=== PATIENT | female | born 1945 | race Caucasian/White ===

== ENCOUNTER 2020-04-20 10:21 | Outpatient (CLI) | payer MEDICARE, SELFPAY ==
[2020-04-20 10:43] LABS: Basophils Absolute Auto 0.03 K/mm3 (0.00-0.10); Basophils Percent Auto 0.5 % (0.0-1.0); Eosinophils Absolute Auto 0.09 K/mm3 (0.02-0.50); Eosinophils Percent Auto 1.6 % (1.0-6.0); Hematocrit 42.8 % (35.0-42.0); Immature Granulocyte Absolute 0.01 K/mm3 (0.00-0.00); Immature Granulocyte Percent A 0.2 % (0.0-0.0); Lymphocytes Absolute Auto 1.39 K/mm3 (1.10-4.50); Lymphocytes Percent Auto 24.8 % (18.0-42.0); Mean Corpuscular HGB Conc 32.7 g/dL (32.0-36.0); Mean Corpuscular Hemoglobin 28.7 pg (27.0-31.0); Mean Corpuscular Volume 87.7 fL (78.0-102.0); Mean Platelet Volume 10.3 fl (9.2-11.8); Monocytes Absolute Auto 0.52 K/mm3 (0.10-0.90); Monocytes Percent Auto 9.3 % (2.0-11.0); Neutrophils Absolute Auto 3.6 K/mm3 (1.7-7.2); Neutrophils Percent Auto 63.6 % (50.0-70.0); Platelet Count Result 165 K/mm3 (150-420); Red Blood Count 4.88 M/mm3 (4.20-5.40); Red Cell Distribution Width 13.8 % (11.6-14.4); White Blood Count 5.6 K/mm3 (4.8-10.8)
[2020-04-20 10:50] LABS: Add Urine Microscopic? YES; Appearance Urine Clear (Clear); Bilirubin Urine 1+ (Negative); Blood Urine Negative (Negative); Color Urine Yellow (Yellow); Glucose Urine UA Negative (Negative); Ketones Urine 1+ (Negative); Leukocyte Esterase Ur Negative LEU/UL (Negative); Nitrate Urine Negative (Negative); Protein Urine Negative (Negative); Specific Grav Ur 1.025 (1.010-1.020); pH Urine 5.5 (5.0-8.0)
[2020-04-20 10:53] LABS: RBC Urine None seen /hpf (0-2); Squamous Epithelial Cell Urine Few /hpf (Few); WBC Urine None seen /hpf (0-3)
[2020-04-20 10:54] LABS: Bacteria Urine Trace /hpf; Mucus Urine Few /lpf
[2020-04-20 12:12] LABS: Alanine Aminotransferase 21 U/L (14-59); Albumin Level 3.5 g/dL (3.4-5.0); Alkaline Phosphatase 91 U/L (46-116); Anion Gap 12.1 mmol/L (7-16); Aspartate Amino Transferase 19 U/L (15-37); Bilirubin,Total 0.8 mg/dL (0.00-1.00); Blood Urea Nitrogen 18 mg/dL (7-18); Calcium 8.9 mg/dL (8.5-10.1); Carbon Dioxide 29 mmol/L (21-32); Chloride 105 mmol/L (98-108); Cholesterol 185 mg/dL (0-200); Creatine Kinase 45 U/L (26-192); Estimated Glomerular Filt Rate 50; Free T4 Free Thyroxine 1.33 ng/dL (0.76-1.46); Glucose 82 mg/dL (70-99); HDL Direct 49 mg/dL (40-60); LDL Cholesterol Calculated 118 mg/dL (<130); Osmolality Calculated 294 mOsm/kg (285-295); Potassium 4.1 mmol/L (3.5-5.1); Sodium 142 mmol/L (136-145); Thyroid Stimulating Hormone 0.95 uIU/mL (0.36-3.74); Total Protein 6.4 g/dL (6.4-8.2); Triglycerides 92 mg/dL (0-150)
== END 2020-04-20 10:22 | disposition home or self-care (01) ==
PROVIDERS: PCP Internal Medicine; Visit Provider Internal Medicine
DX: E03.9 Hypothyroidism, unspecified (principal); I10 Essential (primary) hypertension; E78.5 Hyperlipidemia, unspecified
CPT/HCPCS: 36415; 80053; 80061; 81001; 82550; 84439; 84443; 85025

== ENCOUNTER 2020-05-05 09:43 | Outpatient (CLI) | payer MEDICARE, OTHER, SELFPAY ==
--- NOTE | ~2020-05-05 | US_ITS ---
EXAMINATION: US carotid duplex BI DATE: 05/05/2020 10:19 INDICATION: Stroke with intermittent memory loss and left lower limb numbness TECHNIQUE: Grayscale, color Doppler, and pulsed Doppler images of the cervical carotid arteries were obtained. The degree of vessel stenosis is placed in one of the following categories: normal, <50%, 5 0-69%, >=70% but less than near-occlusion, near-occlusion, or total occlusion. Note that percent sten osis relative to normal distal artery lumen diameter is indirectly measured from velocity measurement s as described by Long, et al. Radiology 2003; 229:340-346. COMPARISON: None. FINDINGS: RIGHT: The right common carotid artery (CCA) peak systolic velocity (PSV) is 98 cm/s. The right internal car otid artery (ICA) PSV is 69 cm/s. The right ICA end-diastolic velocity (EDV) is 19 cm/s. The right IC A/CCA PSV ratio is 0.7. Grayscale and color Doppler images demonstrate no evident stenosis or plaque in the ICA. The external carotid artery (ECA) PSV is 68 cm/s. There is antegrade flow in the right ve rtebral artery. LEFT: The left CCA PSV is 88 cm/s. The left ICA PSV is 78 cm/s. The left ICA EDV is 22 cm/s. The left ICA/C CA PSV ratio is 0.9. Grayscale and color Doppler images demonstrate no evident stenosis or plaque in the ICA. The ECA PSV is 69 cm/s. There is antegrade flow in the left vertebral artery. IMPRESSION: 1. No evident plaque or stenosis in the right internal carotid artery. 2. No evident plaque or stenosis in the left internal carotid artery. Reviewed, dictated and finalized at location A.
== END 2020-05-05 09:44 | disposition home or self-care (01) ==
PROVIDERS: PCP Internal Medicine; Visit Provider Internal Medicine
DX: I63.9 Cerebral infarction, unspecified (principal)
CPT/HCPCS: 93880

== ENCOUNTER 2020-05-09 11:25 | Outpatient (CLI) | payer MEDICARE, OTHER, SELFPAY ==
--- NOTE | ~2020-05-09 | MR_ITS ---
EXAMINATION: MR brain/brain stem wo con EXAM DATE: 05/09/2020 12:03 INDICATION: Unsteady gait, memory loss, confusion. History breast cancer. TECHNIQUE: Magnetic resonance imaging (MRI) of the brain/brain stem obtained without contrast. Sagitt al T1, axial diffusion, gradient echo (T2*), T1, T2, FLAIR sequences obtained. Comparison is made to prior examination from 03/07/2018. 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 There is 5 mm old left centrum semiovale infarction causing T2 shine throu gh on diffusion weighted sequence. Mild microangiopathy. There are no areas of restricted diffusion to suggest acute infarction. There is no acute hemorrhage seen on the T2*, a hemosiderin sensitive sequence. No intraparenchymal brain mass. The ventricles a re normal in size. There are no extra-axial collections. Flow voids are seen in the cerebral arteri es on the T2-weighted sequences consistent with their expected patency. The orbits are unremarkable. IMPRESSION: 1. No acute intracranial findings. 2. Punctate old left cerebral white matter infarction. 3. Mild microangiopathy. 4. Subcutaneous nodules, possible neurofibromatosis. Reviewed, dictated and finalized at location A.
== END 2020-05-09 11:26 | disposition home or self-care (01) ==
LOC: CHSIMG 11:27
PROVIDERS: PCP Internal Medicine; Visit Provider Internal Medicine
DX: I63.9 Cerebral infarction, unspecified (principal)
CPT/HCPCS: 70551

== ENCOUNTER 2020-05-21 18:52 | Emergency (ER) | payer MEDICARE, OTHER, SELFPAY ==
--- NOTE | ~2020-05-21 | XR_ITS ---
XR ankle LT 2V, XR foot LT 2V 05/21/2020 19:24 (accession [id number]), 05/21/2020 19:25 (accession [id number]) Indication: Left ankle and foot pain after injury Procedure: 2 views left ankle and 2 views left foot Comparison: No prior studies Findings: There is moderate lateral soft tissue swelling. No acute fracture or traumatic malalignment . Ankle mortise intact. Talar dome is normal. There are degenerative calcaneal enthesophytes. No fore ign bodies. Impression: 1: No acute fracture. Reviewed, dictated and finalized at location A. Impression: 1: No acute fracture. Impression: 1: No acute fracture.
[2020-05-21 19:05] VITALS: BP 121/60; PULSE 84; RESP 16; TEMP 36.1; O2SAT 99
--- NOTE | 2020-05-21 19:29 | ED.LOWEXIN ---
HPI - Extremity Injury (Lower) General Chief Complaint: Extremity Injury, Lower Stated Complaint: L ankle pain Source: patient Mode of arrival: ambulatory Limitations: no limitations History of Present Illness HPI Narrative: this is a 74-year-old female with a history of hypertension, was was in an older home and inadvertently stepped through a board twisting her her foot and ankle currently the left foot and ankle appear mildly bruise with some swelling has good range of motion although there is some point tenderness on the lateral aspect of her left foot and left ankle. Patient has been walking on it although it is painful when she walks when she is resting comfortably there is no pain. complaint: ankle injury and foot injury Onset (ago): week(s) Injury: Left: ankle and foot ( Bruising and swelling) Type of Injury: inversion Place: home Severity: mild Relieving factors: NSAID Exacerbating factors: nothing Context: other ( twisted) Associated symptoms: swelling Other symptoms: none Related Data Home Medications Medication Instructions Recorded Confirmed gabapentin 300 mg PO TID 05/21/20 05/21/20 hydrochlorothiazide 12.5 mg PO DAILY 05/21/20 05/21/20 levothyroxine 50 mcg PO DAILY 05/21/20 05/21/20 olmesartan 20 mg PO DAILY 05/21/20 05/21/20 pravastatin 10 mg PO DAILY 05/21/20 05/21/20 Allergies Allergy/AdvReac Type Severity Reaction Status Date / Time No Known Allergies Allergy Unverified 06/22/16 15:15 Review of Systems Review of Systems: All systems reviewed & are unremarkable except as noted in HPI and below PMFSH Past Medical History Medical History HTN (hypertension) Exam Const: General: no acute distress and alert Nutritional Appearance: well nourished and obese Orientation/consciousness: patient oriented x3 HENMT: Head: normal to inspection Eyes: Conjunctivae: conjunctivae normal Pupils: Equal, round and reactive pupils present EOM: EOMs intact bilaterally Neck: Neck: normal visual inspection, no lymphadenopathy and no meningeal signs Chest: Chest palpation & inspection: normal inspection of the chest Resp: Effort & Inspection: normal respiratory effort Auscultation: clear to auscultation bilaterally Cardio: Rate: regular rate Rhythm: regular rhythm GI: GI Palp: Yes Soft to palpation : General: Yes no CVA tenderness Skin: General skin exam: normal color Rashes: no rashes Extrem: General: no clubbing, cyanosis or edema ( pain lateral aspect of her left foot and ankle with palpation) Psych: Mental Status: mental status grossly normal Course Course Emergency Course: patient is comfortable with some not ambulatory and just resting she really declined any pain medication because she appears comfortable at rest. Vital Signs Vital signs: Vital Signs Temperature 36.1 C L 05/21/20 19:05 Pulse Rate 84 05/21/20 19:05 Respiratory Rate 16 05/21/20 19:05 Blood Pressure 121/60 05/21/20 19:05 Pulse Oximetry 99 05/21/20 19:05 Temperature 36.1 C L 05/21/20 19:05 Pulse Rate 84 05/21/20 19:05 Respiratory Rate 16 05/21/20 19:05 Blood Pressure 121/60 05/21/20 19:05 Pulse Oximetry 99 05/21/20 19:05 Critical Care Time Critical Care Time Critical Care Time: No Discharge Plan Discharge Clinical Impression: Ankle sprain and strain Patient Disposition: Home, Self-Care Condition: Stable Instructions: Antibiotic Form, Foot Sprain (ED), Ankle Sprain (ED) Additional Instructions: Can take Motrin or Aleve [id number] as needed for pain and inflammation follow-up with primary care physician if symptoms persist or worsen. Prescriptions: No Action pravastatin 10 mg tablet 10 mg PO DAILY RF: 0 levothyroxine 50 mcg tablet 50 mcg PO DAILY RF: 0 gabapentin 300 mg capsule 300 mg PO TID RF: 0 olmesartan 20 mg tablet 20 mg PO DAILY RF: 0 hydrochlorothiazide 1
== END 2020-05-21 19:48 | disposition home or self-care (01) ==
PROVIDERS: Emergency Provider Emergency Medicine; PCP Internal Medicine
DX: S93.402A Sprain of unspecified ligament of left ankle, initial encounter (principal); X50.1XXA Overexertion from prolonged static or awkward postures, initial encounter
CPT/HCPCS: 73600; 73620; 99282; 99283

== ENCOUNTER 2020-05-28 13:34 | Outpatient (CLI) | payer MEDICARE, SELFPAY ==
[2020-05-28 14:19] LABS: Blood Urea Nitrogen 26 mg/dL (7-18); Calcium 9.8 mg/dL (8.5-10.1); Carbon Dioxide 31 mmol/L (21-32); Chloride 103 mmol/L (98-108); Estimated Glomerular Filt Rate 39; Glucose 89 mg/dL (70-99); Osmolality Calculated 293 mOsm/kg (285-295); Sodium 140 mmol/L (136-145)
== END 2020-05-28 13:35 | disposition home or self-care (01) ==
LOC: CHSLAB 13:36
PROVIDERS: PCP Internal Medicine; Visit Provider Internal Medicine
DX: I10 Essential (primary) hypertension (principal)
CPT/HCPCS: 36415; 80048

== ENCOUNTER 2020-06-02 09:43 | Outpatient (CLI) | payer MEDICARE, SELFPAY ==
[2020-06-02 10:45] LABS: Anion Gap 9.1 mmol/L (7-16); Blood Urea Nitrogen 23 mg/dL (7-18); Calcium 9.1 mg/dL (8.5-10.1); Carbon Dioxide 32 mmol/L (21-32); Chloride 105 mmol/L (98-108); Estimated Glomerular Filt Rate 42; Glucose 92 mg/dL (70-99); Osmolality Calculated 297 mOsm/kg (285-295); Potassium 4.1 mmol/L (3.5-5.1); Sodium 142 mmol/L (136-145)
== END 2020-06-02 09:44 | disposition home or self-care (01) ==
LOC: CHSLAB 09:44
PROVIDERS: PCP Internal Medicine; Visit Provider Internal Medicine
DX: I10 Essential (primary) hypertension (principal)
CPT/HCPCS: 36415; 80048

== ENCOUNTER 2020-07-04 15:36 | Outpatient (CLI) | payer MEDICARE, SELFPAY ==
[2020-07-04 16:53] LABS: Anion Gap 9 mmol/L (8-16); Blood Urea Nitrogen 27 mg/dL (7-18); Calcium 9.1 mg/dL (8.5-10.1); Carbon Dioxide 29 mmol/L (21-32); Chloride 104 mmol/L (98-108); Estimated Glomerular Filt Rate 48; Glucose 82 mg/dL (70-99); Osmolality Calculated 298 mOsm/kg (285-295); Potassium 4.1 mmol/L (3.5-5.1); Sodium 142 mmol/L (136-145)
== END 2020-07-04 15:37 | disposition home or self-care (01) ==
LOC: CHSLAB 15:39
PROVIDERS: PCP Internal Medicine; Visit Provider Internal Medicine
DX: R79.89 Other specified abnormal findings of blood chemistry (principal)
CPT/HCPCS: 36415; 80048

== ENCOUNTER 2021-03-11 14:06 | Outpatient (CLI) | payer MEDICARE, SELFPAY ==
--- NOTE | ~2021-03-11 | XR_ITS ---
EXAMINATION: XR lumbar spine 2-3V DATE: 03/11/2021 14:33 INDICATION: Chronic low back pain. TECHNIQUE: Anteroposterior and lateral views of the lumbar spine, and cone-down lateral view of the l umbosacral junction were obtained. COMPARISON: None. FINDINGS: 9 degrees levocurvature measured between L2 and L4. 2 mm anterolisthesis L4 on L5 and 2 mm retrolisth esis L2 on L3. Vertebral body heights are normal. Moderate disc height loss at L1-L2, mild disc heigh t loss at T10-T11 through T12-L1 and at L2-L3 and L3-L4. Degenerative changes between the abutting beth rfaces of the L4 and L5 spinous processes. Moderate lower lumbar facet osteoarthritis. Sacrum and garth ateral sacroiliac joints are unremarkable. Large amount of stool scattered throughout the colon. Tiffanie elate clinically for constipation. IMPRESSION: 1. Mild lumbar levocurvature with mild to moderate spondylosis. Reviewed, dictated and finalized at location A.
== END 2021-03-11 14:07 | disposition home or self-care (01) ==
LOC: CHSIMG 14:10
PROVIDERS: PCP Internal Medicine; Visit Provider Internal Medicine
DX: M54.5 Low back pain (principal)
CPT/HCPCS: 72100

== ENCOUNTER 2021-03-15 10:49 | Outpatient (RCR) | payer MEDICARE, SELFPAY ==
--- NOTE | 2021-03-15 13:01 | PTOPEVAL ---
Thank you for referring Kylee Correa to [facility] [place]Note 2[place]? The patient is scheduled to be seen for therapy? __3__x/week for 12 visits. Please review, sign, date and return this plan of care SHELDON. I agree with and certify that the following plan of care is medically necessary. Referring Physician Date Admitting Provider: Attending Provider: Lesa Aguilar MD Referring Provider: *PT Outpatient Evaluation Start: 03/15/21 11:02 Freq: Status: Active Protocol: Document 03/15/21 11:02 ROCIO (Rec: 03/15/21 11:59 [email or web address] [id number]) Therapy Assessment Status Assessment Status Assessment Status Evaluation Outpatient Past Medical History Neurological History Hx Other Neurological Disorders Yes: neurofibromitosis Cardiovascular History Hx Hypercholesterolemia Yes Hx Hypertension Yes Endocrine History Hx Hypothyroidism Yes Other History Hx Cancer Yes: breast Evaluation Information Problem Diagnosis low back pain Onset 03/15/20 Subjective Information Pt. reports that she developed Query Text:As Reported By Patient/ off/on back pain for about Family the past year. She reports that she notes an intense ache in the back with bending in the garden and even walking. She reports that pain does not affect her sleep. She reports that pain is present in some capacity throughout the day. She reports that pain goes across the low back and does not radiate into the legs and buttock. she reports that her goal is to reduce her back pain. Prior Level of Function Activity Level (Last 3 Months) Occupation retired Hand Dominance Right Activity of Daily Living Ability Independent Indoor/Home Mobility Independent Community Mobility Independent Stairs Ability Independent Functional Cognition (Planning, Shopping Independent , Taking Medications) Cooking Yes Cleaning Yes Laundry Yes Shopping Yes Driving Yes Pain Assessment Timing of Pain Assessment Timing of Pain Assessment Pre-Treatment Pain Scale Pain Scale Used Numeric (1 - 10) Self Report Pain Assessment Lower Back Reported Pain Level 5 Pain Description
== END 2021-04-29 08:31 | disposition home or self-care (01) ==
LOC: CHSPT 10:49
PROVIDERS: PCP Internal Medicine; Visit Provider Internal Medicine
DX: M54.5 Low back pain (principal)
CPT/HCPCS: 97014; 97110; 97161; 97530; G0283

== ENCOUNTER 2021-04-21 10:22 | Outpatient (CLI) | payer MEDICARE, SELFPAY ==
[2021-04-21 10:52] LABS: Basophils Absolute Auto 0.04 K/mm3 (0.00-0.10); Basophils Percent Auto 0.7 % (0.0-1.0); Eosinophils Absolute Auto 0.15 K/mm3 (0.02-0.50); Eosinophils Percent Auto 2.7 % (1.0-6.0); Hematocrit 38.2 % (35.0-42.0); Hemoglobin 12.3 g/dL (11.7-13.8); Immature Granulocyte Absolute 0.01 K/mm3 (0.00-0.00); Immature Granulocyte Percent A 0.2 % (0.0-0.0); Lymphocytes Absolute Auto 1.33 K/mm3 (1.10-4.50); Lymphocytes Percent Auto 23.8 % (18.0-42.0); Mean Corpuscular HGB Conc 32.2 g/dL (32.0-36.0); Mean Corpuscular Hemoglobin 28.7 pg (27.0-31.0); Mean Platelet Volume 10.6 fl (9.2-11.8); Monocytes Percent Auto 10.8 % (2.0-11.0); Neutrophils Absolute Auto 3.5 K/mm3 (1.7-7.2); Neutrophils Percent Auto 61.8 % (50.0-70.0); Platelet Count Result 148 K/mm3 (150-420); Red Blood Count 4.29 M/mm3 (4.20-5.40); Red Cell Distribution Width 13.9 % (11.6-14.4); White Blood Count 5.6 K/mm3 (4.8-10.8)
[2021-04-21 10:56] LABS: Appearance Urine Sl Cloudy (Clear); Bilirubin Urine Negative (Negative); Blood Urine Negative (Negative); Glucose Urine UA Negative (Negative); Ketones Urine Trace (Negative); Leukocyte Esterase Ur 3+ LEU/UL (Negative); Nitrate Urine Positive (Negative); Protein Urine Negative (Negative)
[2021-04-21 11:35] LABS: Add Urine Microscopic? YES; Color Urine Light Yellow (Yellow); RBC Urine None seen /hpf (0-2); Squamous Epithelial Cell Urine Rare /hpf (Few); WBC Urine 21-30 /hpf (0-3)
[2021-04-21 11:36] LABS: Bacteria Urine 3+ /hpf
[2021-04-21 12:06] LABS: Alanine Aminotransferase 19 U/L (14-59); Albumin Level 3.3 g/dL (3.4-5.0); Alkaline Phosphatase 89 U/L (46-116); Anion Gap 12 mmol/L (8-16); Aspartate Amino Transferase 15 U/L (15-37); Bilirubin,Total 0.8 mg/dL (0.00-1.00); Blood Urea Nitrogen 22 mg/dL (7-18); Carbon Dioxide 25 mmol/L (21-32); Chloride 106 mmol/L (98-108); Cholesterol 149 mg/dL (0-200); Creatine Kinase 56 U/L (26-192); Estimated Glomerular Filt Rate 37; Free T3 2.41 pg/mL (2.18-3.98); Free T4 Free Thyroxine 1.37 ng/dL (0.76-1.46); Glucose 86 mg/dL (70-99); HDL Direct 43 mg/dL (40-60); LDL Cholesterol Calculated 87 mg/dL (<130); Osmolality Calculated 298 mOsm/kg (285-295); Potassium 4.6 mmol/L (3.5-5.1); Sodium 143 mmol/L (136-145); Thyroid Stimulating Hormone 0.92 uIU/mL (0.36-3.74); Triglycerides 96 mg/dL (0-150)
== END 2021-04-21 10:23 | disposition home or self-care (01) ==
LOC: CHSLAB 10:25
PROVIDERS: PCP Internal Medicine; Visit Provider Internal Medicine
DX: E03.4 Atrophy of thyroid (acquired) (principal); I12.9 Hypertensive chronic kidney disease with stage 1 through stage 4 chronic kidney disease, or unspecified chronic kidney disease; E78.2 Mixed hyperlipidemia; N18.2 Chronic kidney disease, stage 2 (mild); N39.0 Urinary tract infection, site not specified
CPT/HCPCS: 36415; 80053; 80061; 81001; 82550; 84439; 84443; 84481; 85025; 87077; 87086; 87088; 87186

== ENCOUNTER 2021-11-03 12:08 | Outpatient (CLI) | payer MEDICARE, SELFPAY ==
--- NOTE | ~2021-11-03 | US_ITS ---
US retroperitoneal comp 11/03/2021 12:50 Procedure: Realtime transabdominal ultrasound of the kidneys and bladder. Indication: Chronic kidney disease Comparison: No prior studies for comparison. Findings: Renal echotexture is normal bilaterally without hydronephrosis, contour deforming mass or r enal calculus. The right kidney measures 8.5 cm and left kidney measures 9.8 cm. Bladder wall is mil dly prominent measuring 3 mm. Impression: 1: Mildly prominent bladder wall measuring 3 mm. Otherwise, unremarkable renal ultrasound. Reviewed, dictated and finalized at location A. [employer] Impression: 1: Mildly prominent bladder wall measuring 3 mm. Otherwise, unremarkable renal ultrasound.
== END 2021-11-03 12:09 | disposition home or self-care (01) ==
LOC: CHSIMG 12:09
PROVIDERS: PCP Internal Medicine; Visit Provider Internal Medicine Nephrology
DX: N18.32 Chronic kidney disease, stage 3b (principal)
CPT/HCPCS: 76770

== ENCOUNTER 2021-12-30 11:32 | Outpatient (CLI) | payer MEDICARE, SELFPAY ==
[2021-12-30 12:07] LABS: Sodium Urine Random 52 mmol/L (20-110); Total Protein Urine Random < 7.0 mg/dL (0.0-11.9); Ur Ttl Prot Creatinine Ratio 0.12 mg/mg (0-0.20)
[2021-12-30 12:31] LABS: Eosinophil Urine 0 % (0-0)
[2021-12-30 12:38] LABS: Albumin Level 3.5 g/dL (3.4-5.0); Anion Gap 9 mmol/L (8-16); Blood Urea Nitrogen 23 mg/dL (7-18); Calcium 9.1 mg/dL (8.5-10.1); Carbon Dioxide 27 mmol/L (21-32); Chloride 103 mmol/L (98-108); Estimated Glomerular Filt Rate 43; Glucose 85 mg/dL (70-99); Osmolality Calculated 290 mOsm/kg (285-295); Phosphorus 3.6 mg/dL (2.6-4.7); Potassium 4.5 mmol/L (3.5-5.1); Sodium 139 mmol/L (136-145)
[2022-01-03 11:11] LABS: Anti Glomerular Basement Memb <1.0 AI (<1.0)
[2022-01-03 12:18] LABS: Complement C3 121 mg/dL (83-193)
[2022-01-04 16:10] LABS: Albumin 3.7 g/dL (3.8-4.8); Alpha 1 Globulin 0.3 g/dL (0.2-0.3); Alpha 2 Globulin 0.8 g/dL (0.5-0.9); Beta 1 Globulin 0.5 g/dL (0.4-0.6); Gamma Globulin 0.9 g/dL (0.8-1.7); Protein, Total 6.5 g/dL (6.1-8.1)
[2022-01-05 03:08] LABS: Creatinine, Random Urine 61 mg/dL (20-275); Total Protein/Creatinine Ratio 82 mg/g creat (21-161)
[2022-01-05 12:07] LABS: ANCA Screen Negative (Negative)
== END 2021-12-30 11:33 | disposition home or self-care (01) ==
LOC: CHSLAB 11:34
PROVIDERS: PCP Internal Medicine; Visit Provider Internal Medicine Nephrology
DX: I12.9 Hypertensive chronic kidney disease with stage 1 through stage 4 chronic kidney disease, or unspecified chronic kidney disease (principal); N18.32 Chronic kidney disease, stage 3b
CPT/HCPCS: 36415; 80069; 82570; 83520; 84155; 84156; 84165; 84166; 84300; 85999; 86036; 86038; 86160; 86225

== ENCOUNTER 2021-12-31 12:28 | Outpatient (CLI) | payer MEDICARE, SELFPAY ==
--- NOTE | ~2021-12-31 | US_ITS ---
EXAMINATION: US retroperitoneal comp DATE: 12/31/2021 12:44 INDICATION: Stage IIIB chronic kidney disease TECHNIQUE: Multiple ultrasound grayscale images of the kidneys were obtained. COMPARISON: None. FINDINGS: The right kidney measures 9.3 x 4.3 x 4.8 cm. The left kidney measures 9.9 x 4.6 x 4.4 cm. The kidney s demonstrate normal echogenicity. There is no hydronephrosis in either kidney. No stones identified . The bladder is normal. IMPRESSION: 1. Normal kidneys without hydronephrosis. Reviewed, dictated and finalized at location A. OF DATA
== END 2021-12-31 12:29 | disposition home or self-care (01) ==
LOC: CHSIMG 12:29
PROVIDERS: PCP Internal Medicine; Visit Provider Internal Medicine Nephrology
DX: N18.32 Chronic kidney disease, stage 3b (principal)
CPT/HCPCS: 76770

== ENCOUNTER 2022-04-06 13:56 | Outpatient (CLI) | payer MEDICARE, SELFPAY ==
[2022-04-06 14:53] LABS: Albumin Level 3.4 g/dL (3.4-5.0); Anion Gap 7 mmol/L (8-16); Blood Urea Nitrogen 27 mg/dL (7-18); Carbon Dioxide 26 mmol/L (21-32); Chloride 105 mmol/L (98-108); Estimated Glomerular Filt Rate 32; Glucose 88 mg/dL (70-99); Osmolality Calculated 290 mOsm/kg (285-295); Phosphorus 4.2 mg/dL (2.6-4.7); Potassium 4.4 mmol/L (3.5-5.1); Sodium 138 mmol/L (136-145)
[2022-04-08 14:56] LABS: Vitamin D 25 Hydroxy 45 ng/mL (30-100)
[2022-04-09 15:37] LABS: Parathyroid Intact 88 pg/mL (14-64)
== END 2022-04-06 13:57 | disposition home or self-care (01) ==
LOC: CHSLAB 13:59
PROVIDERS: PCP Internal Medicine; Visit Provider Internal Medicine Nephrology
DX: I12.9 Hypertensive chronic kidney disease with stage 1 through stage 4 chronic kidney disease, or unspecified chronic kidney disease (principal); M18.32 Unilateral post-traumatic osteoarthritis of first carpometacarpal joint, left hand; E55.9 Vitamin D deficiency, unspecified
CPT/HCPCS: 36415; 80069; 82306; 83970

== ENCOUNTER 2022-04-07 12:31 | Outpatient (CLI) | payer MEDICARE, SELFPAY ==
[2022-04-07 12:56] LABS: Creatinine Urine 67.12 mg/dL (40-278); Total Protein Urine Random < 6.0 mg/dL (0.0-11.9); Ur Ttl Prot Creatinine Ratio 0.09 mg/mg (0-0.20)
== END 2022-04-07 12:32 | disposition home or self-care (01) ==
LOC: CHSLAB 12:33
PROVIDERS: PCP Internal Medicine; Visit Provider Internal Medicine Nephrology
DX: I12.9 Hypertensive chronic kidney disease with stage 1 through stage 4 chronic kidney disease, or unspecified chronic kidney disease (principal); N18.32 Chronic kidney disease, stage 3b; E55.9 Vitamin D deficiency, unspecified
CPT/HCPCS: 82570; 84156

== ENCOUNTER 2022-08-17 11:36 | Outpatient (CLI) | payer MEDICARE, SELFPAY ==
[2022-08-17 12:19] LABS: Anion Gap 7 mmol/L (8-16); Blood Urea Nitrogen 25 mg/dL (7-18); Carbon Dioxide 28 mmol/L (21-32); Chloride 107 mmol/L (98-108); Estimated Glomerular Filt Rate 37; Glucose 92 mg/dL (70-99); Osmolality Calculated 298 mOsm/kg (285-295); Potassium 4.7 mmol/L (3.5-5.1); Sodium 142 mmol/L (136-145)
[2022-08-17 12:20] LABS: Albumin Level 3.6 g/dL (3.4-5.0); Calcium 9.2 mg/dL (8.5-10.1); Phosphorus 4.1 mg/dL (2.6-4.7)
[2022-08-17 12:25] LABS: Creatinine Urine 82.56 mg/dL (40-278); Total Protein Urine Random 12.5 mg/dL (0.0-11.9); Ur Ttl Prot Creatinine Ratio 0.15 mg/mg (0-0.20)
== END 2022-08-17 11:37 | disposition home or self-care (01) ==
LOC: CHSLAB 11:38
PROVIDERS: PCP Internal Medicine; Visit Provider Internal Medicine Nephrology
DX: I12.9 Hypertensive chronic kidney disease with stage 1 through stage 4 chronic kidney disease, or unspecified chronic kidney disease (principal); N18.32 Chronic kidney disease, stage 3b
CPT/HCPCS: 36415; 80069; 82570; 84156

== ENCOUNTER 2022-12-23 11:43 | Outpatient (CLI) | payer MEDICARE, SELFPAY ==
[2022-12-23 12:22] LABS: Total Protein Urine Random 16.5 mg/dL (0.0-11.9); Ur Ttl Prot Creatinine Ratio 0.17 mg/mg (0-0.20)
[2022-12-23 12:48] LABS: Albumin Level 3.3 g/dL (3.4-5.0); Anion Gap 6 mmol/L (8-16); Blood Urea Nitrogen 23 mg/dL (7-18); Calcium 9.2 mg/dL (8.5-10.1); Carbon Dioxide 29 mmol/L (21-32); Chloride 107 mmol/L (98-108); Estimated Glomerular Filt Rate 40; Glucose 92 mg/dL (70-99); Osmolality Calculated 297 mOsm/kg (285-295); Phosphorus 3.9 mg/dL (2.6-4.7); Potassium 4.8 mmol/L (3.5-5.1); Sodium 142 mmol/L (136-145)
[2022-12-26 19:44] LABS: Vitamin D 25 Hydroxy 38 ng/mL (30-100)
[2022-12-27 20:38] LABS: Parathyroid Intact 69 pg/mL (14-64)
== END 2022-12-23 11:44 | disposition home or self-care (01) ==
LOC: CHSLAB 11:46
PROVIDERS: PCP Internal Medicine; Visit Provider Internal Medicine Nephrology
DX: N18.32 Chronic kidney disease, stage 3b (principal); I12.9 Hypertensive chronic kidney disease with stage 1 through stage 4 chronic kidney disease, or unspecified chronic kidney disease; E55.9 Vitamin D deficiency, unspecified; N25.81 Secondary hyperparathyroidism of renal origin
CPT/HCPCS: 36415; 80069; 82306; 82570; 83970; 84156

== ENCOUNTER 2023-04-14 16:27 | Outpatient (CLI) | payer MEDICARE, SELFPAY ==
[2023-04-14 17:16] LABS: Albumin Level 3.2 g/dL (3.4-5.0); Anion Gap 7 mmol/L (8-16); Blood Urea Nitrogen 42 mg/dL (7-18); Calcium 8.6 mg/dL (8.5-10.1); Carbon Dioxide 26 mmol/L (21-32); Chloride 103 mmol/L (98-108); Estimated Glomerular Filt Rate 23; Glucose 96 mg/dL (70-99); Osmolality Calculated 292 mOsm/kg (285-295); Phosphorus 4.5 mg/dL (2.6-4.7); Potassium 4.9 mmol/L (3.5-5.1); Sodium 136 mmol/L (136-145)
== END 2023-04-14 16:28 | disposition home or self-care (01) ==
LOC: CHSLAB 16:29
PROVIDERS: PCP Internal Medicine; Visit Provider Internal Medicine Nephrology
DX: I12.9 Hypertensive chronic kidney disease with stage 1 through stage 4 chronic kidney disease, or unspecified chronic kidney disease (principal); N18.32 Chronic kidney disease, stage 3b
CPT/HCPCS: 36415; 80069

== ENCOUNTER 2023-04-15 11:44 | Outpatient (CLI) | payer MEDICARE, SELFPAY ==
[2023-04-15 12:34] LABS: Creatinine Urine 191.94 mg/dL (40-278); Total Protein Urine Random 21.4 mg/dL (0.0-11.9); Ur Ttl Prot Creatinine Ratio 0.11 mg/mg (0-0.20)
== END 2023-04-15 11:45 | disposition home or self-care (01) ==
PROVIDERS: PCP Internal Medicine; Visit Provider Internal Medicine Nephrology
DX: N18.32 Chronic kidney disease, stage 3b (principal); I12.9 Hypertensive chronic kidney disease with stage 1 through stage 4 chronic kidney disease, or unspecified chronic kidney disease
CPT/HCPCS: 82570; 84156

== ENCOUNTER 2023-07-24 11:16 | Outpatient (CLI) | payer MEDICARE, SELFPAY ==
--- NOTE | ~2023-07-24 | XR_ITS ---
Lumbosacral Spine: AP and lateral views Clinical History: Pain COMPARISON: 03/11/2021 Findings: Mild levoscoliosis is similar to prior exam. No acute fracture identified. No definite subl uxation. There is mild to moderate facet arthropathy throughout the lumbar spine. There are mild to m oderate degenerative disc changes throughout the lumbar spine. The sacroiliac joints are normally out lined. Impression: Mild to moderate degenerative spondylosis, as above, similar to prior exam. Stable levoscoliosis. Reviewed, dictated and finalized at location M. Impression: Mild to moderate degenerative spondylosis, as above, similar to prior exam. Stable levoscoliosis.
--- NOTE | ~2023-07-24 | XR_ITS ---
Thoracic spine: Clinical Indication: Back pain AP and lateral views were performed. No fracture is seen. There is normal alignment of the vertebrae. The intervertebral disc spaces appe ar normal. Paravertebral soft tissues appear normal. Impression: No significant abnormalities noted. Reviewed, dictated and finalized at [facility]. Impression: No significant abnormalities noted.
== END 2023-07-24 11:17 | disposition home or self-care (01) ==
LOC: CHSIMG 11:17
PROVIDERS: PCP Internal Medicine; Visit Provider Nurse Practitioner Family
DX: M54.50 Low back pain, unspecified (principal); M43.06 Spondylolysis, lumbar region; M41.87 Other forms of scoliosis, lumbosacral region
CPT/HCPCS: 72072; 72100

== ENCOUNTER 2023-08-11 10:31 | Outpatient (CLI) | payer MEDICARE, SELFPAY ==
[2023-08-11 11:02] LABS: Creatinine Urine 63.97 mg/dL (40-278); Total Protein Urine Random 8.7 mg/dL (0.0-11.9); Ur Ttl Prot Creatinine Ratio 0.14 mg/mg (0-0.20)
[2023-08-11 11:16] LABS: Anion Gap 10 mmol/L (8-16); Blood Urea Nitrogen 22 mg/dL (7-18); Calcium 9.4 mg/dL (8.5-10.1); Carbon Dioxide 25 mmol/L (21-32); Chloride 107 mmol/L (98-108); Estimated Glomerular Filt Rate 34; Glucose 84 mg/dL (70-99); Osmolality Calculated 296 mOsm/kg (285-295); Phosphorus 3.7 mg/dL (2.6-4.7); Potassium 4.6 mmol/L (3.5-5.1); Sodium 142 mmol/L (136-145)
[2023-08-15 03:48] LABS: Parathyroid Intact 81 pg/mL (14-64)
[2023-08-15 12:52] LABS: Vitamin D 25 Hydroxy 30 ng/mL (30-100)
== END 2023-08-11 10:32 | disposition home or self-care (01) ==
LOC: CHSLAB 10:32
PROVIDERS: PCP Internal Medicine; Visit Provider Internal Medicine Nephrology
DX: I12.9 Hypertensive chronic kidney disease with stage 1 through stage 4 chronic kidney disease, or unspecified chronic kidney disease (principal); N18.32 Chronic kidney disease, stage 3b
CPT/HCPCS: 36415; 80069; 82306; 82570; 83970; 84156

== ENCOUNTER 2023-10-24 16:41 | Emergency (ER) | payer MEDICARE, SELFPAY ==
[2023-10-24] VITALS (47 sets, daily range): BP systolic 103–129; BP diastolic 70–103; PULSE 88–121; RESP 15–26; TEMP 37.2; O2SAT 81–100
--- NOTE | ~2023-10-24 | XR_ITS ---
EXAMINATION: XR chest 1V portable DATE: 10/24/2023 17:13 INDICATION: Shortness of breath. TECHNIQUE: A single frontal view of the chest was obtained. COMPARISON: Chest 2 views 10/29/2014, chest CT 10/29/2014 FINDINGS: There is no pneumonia, pleural effusion, or pneumothorax. The heart size is normal. IMPRESSION: 1. No acute cardiopulmonary disease. Reviewed, dictated and finalized at location A. 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
--- NOTE | ~2023-10-24 | CT_ITS ---
EXAMINATION: CTA chest PE protocol DATE: 10/24/2023 18:13 INDICATION: SOB X 1 WEEK TECHNIQUE: Computed tomography angiography (CTA) of the chest was performed with 100 mL Omnipaque-350 intravenous contrast timed to evaluate the pulmonary arteries. Coronal maximum intensity projection 3D-reconstructions were created by the technologist. The dose-length product (DLP) was 263.10 mGy-cm. Automated exposure control and iterative reconstruction technique were employed. COMPARISON: X-ray chest, same date. FINDINGS: Lung parenchyma and airways: Irregular, approximately 1 cm nodular opacities noted peripherally in th e right lower lobe, slightly wedge-shaped in the coronal and sagittal views. Pleura: Unremarkable. Thoracic inlet, axillae and chest wall: Unremarkable. Thoracic aorta: Mild arch calcification. Mediastinum: Normal. Heart and pericardium: RV/LV ratio 1.2 no hepatic vein reflux or significant septal bowing. Coronary artery calcifications: Mild. Upper abdomen: No significant finding. Bones: No acute osseous finding. Pulmonary arteries: Study quality: Adequate. Acute emboli in the distal bilateral main pulmonary cam evaristo, extending into segmental and subsegmental branches of all lobes, except the lingula. Probably o cclusive emboli in the right upper lobe, right lower lobe, and right middle lobe. IMPRESSION: Bilateral acute pulmonary emboli involving the distal bilateral pulmonary arteries extending into the segmental and subsegmental branches of most lung lobes. Large clot burden. RV/LV ratio of 1.2 indica ting right heart strain. Peripheral right lower lobe opacities may represent small subsegmental pulmonary infarctions. Reviewed, dictated and finalized at location K. ITY ASSURANCE CLERK IMPRESSION: Bilateral acute pulmonary emboli involving the distal bilateral pulmonary arter ies extending into the segmental and subsegmental branches of most lung lobes. Large clot burden. RV/LV ratio of 1.2 indicating right heart strain. Peripheral right lower lobe opacities may represent small subsegmental pulmonar y infarctions.
--- NOTE | 2023-10-24 16:46 | ED.GENADULT ---
HPI - General Adult General Chief complaint: Shortness of Breath/Dyspnea <Paras Dolan MD - Last Filed: 10/24/23 19:03> Stated complaint: near syncope <Paras Dolan MD - Last Filed: 10/24/23 19:03> Time Seen by Provider: 10/24/23 16:46 <Paras Dolan MD - Last Filed: 10/24/23 19:03> Source: patient <Paras Dolan MD - Last Filed: 10/24/23 19:03> Mode of arrival: ambulatory <Paras Dolan MD - Last Filed: 10/24/23 19:03> Limitations: no limitations <Paras Dolan MD - Last Filed: 10/24/23 19:03> History of Present Illness HPI narrative: 78-year-old white female complains of nonproductive cough for the last week with dyspnea on exertion and some chest tightness with exertion she was at the grave of her daughter when she bent all over lost her balance and sit down took a long time to get up. She said she had tightness in her chest that lasted for about 10 minutes so she came to the emergency room for evaluation. She felt a little nauseous without any vomiting or diaphoresis has denied any fever runny nose sore throat swelling lumps or bumps bleeding or bruising for rash or itching or anxiety depression or other psychiatric illness. She has had COVID vaccine in a booster. History of breast cancer in 2015 treated with surgery radiation chemo she says she is cured CVA (cerebral vascular accident) HTN (hypertension) Hyperlipidemia Hypothyroidism Lumbago Neurofibromatosis Peripheral neuropathy allergies lisinopril gives her cough <Paras Dolan MD - Last Filed: 10/24/23 19:03> Related Data Home medications: Home Medications Medication Instructions Recorded Confirmed levothyroxine 50 mcg tablet 50 mcg PO DAILY 05/21/20 10/24/23 olmesartan 20 mg tablet 20 mg PO DAILY 05/21/20 10/24/23 pravastatin 10 mg tablet 10 mg PO DAILY 05/21/20 10/24/23 gabapentin 300 mg capsule 300 mg PO .COMPLEX 12/28/22 10/24/23 <Paras Dolan MD - Last Filed: 10/24/23 19:03> Allergies/adverse reactions: Allergies Allergy/AdvReac Type Severity Reaction Status Date / Time lisinopril Allergy Cough Verified 10/24/23 17:15 <Paras Dolan MD - Last Filed: 10/24/23 19:03> [facility] Past Medical History Medical History: Medical History (Updated 10/24/23 @ 21:56 by Alan Denton MD) CVA (cerebral vascular accident) HTN (hypertension) Hyperlipidemia Hypothyroidism Lumbago Neurofibromatosis Peripheral neuropathy <Paras Dolan MD - Last Filed: 10/24/23 19:03> Social History Social History: Social History (Updated 12/28/22 @ 10:37 by Luigi Reid MD) Smoking status: Former smoker Tobacco type: cigarettes Alcohol intake: current Substance use: never Substance use type: unknown Lack of Transportation: No Lack of Food: Never True Current Housing: I Have Housing Concerned About Future Housing: No Difficulty Paying Gas/Electric Bills: No Difficulty Paying for Meds: No Currently Unemployed: No Education: High School Diploma/GED Difficulty w/ Childcare or Family Care: No Living arrangements: with family Gender identity (if verbalized by the patient): Female Sexual Orientation (if Verbalized by the Patient): Straight or Heterosexual <Paras Dolan MD - Last Filed: 10/24/23 19:03> Course Course Emergency Course: ZYCH 2199: multiple hospitals were called and most of them had several day waiting list. Patient was eventually accepted at [facility] under Dr. Vaughan. Patient was transferred via ALS ambulance. patient's condition stable discharged <Alan Denton MD - Last Filed: 10/24/23 21:56> Vital Signs Vital signs: Vital Signs Temperature 98.9 F 10/24/23 16:41 Pulse Rate 102 H 10/24/23 16:41 Respiratory Rate 24 H 10/24/23 16:41 Blood Pressure 119/87 10/24/23 16:41 Pulse Oximetry 81 L 10/24/23 16:41 Oxygen Delivery Room
--- NOTE | 2023-10-24 16:47 | ECG_ITS ---
Measurements Intervals [place] Rate: 99 P: 9 IA: 154 QRS: -33 QRSD: 114 T: 60 QT: 323 QTc: 415 Interpretive Statements SINUS RHYTHM WITH SINUS ARRHYTHMIA LEFT AXIS DEVIATION [QRS AXIS < -30] POSSIBLE ANTERIOR MYOCARDIAL INFARCTION , OF INDETERMINATE AGE [30 ms Q WAVE IN V3/V4, OR R < 0.2 mV IN V4] ABNORMAL ECG NO PREVIOUS ECG AVAILABLE FOR COMPARISON Electronically Signed On 10-25-2023 10:45:36 PERMANENT MOLD SUPERVISOR by Paras Lombardi M.D.
[2023-10-24 17:13] LABS: Hemoglobin 12.2 g/dL (11.7-13.8); Mean Corpuscular HGB Conc 32.1 g/dL (32.0-36.0); Mean Corpuscular Volume 84.1 fL (78.0-102.0); Mean Platelet Volume 9.7 fl (9.2-11.8); Platelet Count Result 173 K/mm3 (150-420); Red Blood Count 4.52 M/mm3 (4.20-5.40); Red Cell Distribution Width 14.3 % (11.6-14.4); White Blood Count 7.5 K/mm3 (4.8-10.8)
[2023-10-24] MEDS: IPRATROPIUM 0.5 MG/ALBUTEROL SULFATE 2.5 MG AMPUL.NEB 3 ML INHALATION (17:13)
[2023-10-24 17:14] LABS: Base Excess ABG -2.2 mmol/L (0-2); Device ROOM AIR; HCO3 ABG 19.8 mmol/L (23-29); Modified Allen's Test Pass; Oxygen Content ABG 15.9 %vol (16.0-22.0); Oxygen Saturation ABG 90.7 % (95-97); Oxyhemoglobin 90.4 % (94-100); PCO2 ABG 26.5 mmHg (35-45); PO2 ABG 56.6 mmHg (75-85); Site Drawn RIGHT RADIAL; Total Hemoglobin 12.5 g/dL (12.0-18.0); pH ABG 7.49 (7.35-7.45)
--- NOTE | 2023-10-24 17:17 | PC.NURSE ---
pt has neb tx in progress. is in waiting room and has been updated. pt is awaiting covid results for to come back to exam room. pt is awaiting results at this time. will continue to monitor.
[2023-10-24 17:30] LABS: SARS-CoV-2 RNA PCR Negative (Negative)
[2023-10-24 17:30] LABS: Alanine Aminotransferase 18 U/L (14-59); Alkaline Phosphatase 140 U/L (46-116); Anion Gap 4 mmol/L (8-16); Aspartate Amino Transferase 13 U/L (15-37); Bilirubin,Total 0.4 mg/dL (0.00-1.00); Blood Urea Nitrogen 17 mg/dL (7-18); Calcium 8.5 mg/dL (8.5-10.1); Carbon Dioxide 30 mmol/L (21-32); Chloride 102 mmol/L (98-108); Estimated Glomerular Filt Rate 36; Glucose 141 mg/dL (70-99); Osmolality Calculated 285 mOsm/kg (285-295); Potassium 3.7 mmol/L (3.5-5.1); Sodium 136 mmol/L (136-145); Total Protein 6.9 g/dL (6.4-8.2); Troponin I 31.2 ng/L (0.00-60.4)
[2023-10-24 17:32] LABS: Influenza A QL RT-PCR Negative (Negative); Influenza B QL RT-PCR Negative (Negative); RSV RNA, RT-PCR Negative (Negative)
[2023-10-24 17:33] LABS: Lactic Acid Reflex 1.7 mmol/L (0.4-2.0)
[2023-10-24 17:37] LABS: NT Pro B Type Natriuretic Pept 644 pg/mL (0-450); Partial Thromboplastin Time 26.9 SEC (23.90-30.70); Prothrombin Time 10.9 Seconds (9.64-11.0)
[2023-10-24 17:42] LABS: D Dimer 15.64 mg/L (0.19-0.50)
--- NOTE | 2023-10-24 17:51 | PC.NURSE ---
pt has at bedside. pt is awaiting ct at this time, nad noted. pt denies any needs or complaints. will continue to monitor.
[2023-10-24] MEDS: AZITHROMYCIN 500 MG/NS 250 ML 500 MG/250 ML BAG 250 MG IVPB (18:18)
--- NOTE | 2023-10-24 18:47 | PC.NURSE ---
warm blanket provided. vss per monitor. remains at bedside. nad noted. pt reports sob is worse with exertion, however denies any sob at this time. will continue to monitor.
[2023-10-24] MEDS: HEPARIN SODIUM 5,000 UNITS/ML VIAL 5000 UNITS IV PUSH (19:19)
[2023-10-24] MEDS: HEPARIN SOD/D5W 100 UNITS/ML 25,000 UNITS/250 ML BAG 11 UNITS IV CONT (19:22)
--- NOTE | 2023-10-24 21:52 | PC.NURSE ---
Pt placement bed received from [facility]. Paperwork signed for transfer.
--- NOTE | 2023-10-24 22:35 | PC.NURSE ---
Pt transferred to cot per EMS [facility] for transfer s incident. Tolerated well, pt stable c VSS at d/c.
--- NOTE | 2023-10-30 12:56 | PC.NURSE ---
Final blood culture report; no growth after 5 days, no further action or treatment needed.
== END 2023-10-24 22:35 | disposition short-term general hospital (02) ==
PROVIDERS: Emergency Medicine; Emergency Provider Emergency Medicine; PCP Internal Medicine
DX: I26.99 Other pulmonary embolism without acute cor pulmonale (principal); E78.5 Hyperlipidemia, unspecified; I10 Essential (primary) hypertension; E03.9 Hypothyroidism, unspecified; Z87.891 Personal history of nicotine dependence; Z85.3 Personal history of malignant neoplasm of breast; Z86.73 Personal history of transient ischemic attack (TIA), and cerebral infarction without residual deficits; Z20.822 Contact with and (suspected) exposure to COVID-19
CPT/HCPCS: 36415; 36600; 71045; 71275; 80053; 82805; 83605; 83880; 84484; 85027; 85380; 85610; 85730; 87040; 87637; 93005; 96365; 96366; 96367; 99291; J0456; J0696; J1644; Q9967

== ENCOUNTER 2023-12-15 13:22 | Outpatient (CLI) | payer MEDICARE, SELFPAY ==
[2023-12-15 14:10] LABS: Anion Gap 10 mmol/L (8-16); Blood Urea Nitrogen 29 mg/dL (7-18); Calcium 8.6 mg/dL (8.5-10.1); Carbon Dioxide 27 mmol/L (21-32); Chloride 106 mmol/L (98-108); Estimated Glomerular Filt Rate 37; Glucose 122 mg/dL (70-99); Osmolality Calculated 302 mOsm/kg (285-295); Potassium 4.6 mmol/L (3.5-5.1); Sodium 143 mmol/L (136-145)
[2023-12-15 17:18] LABS: Creatinine Urine 58.74 mg/dL (40-278); Total Protein Urine Random 9.1 mg/dL (0.0-11.9); Ur Ttl Prot Creatinine Ratio 0.15 mg/mg (0-0.20)
== END 2023-12-15 13:23 | disposition home or self-care (01) ==
LOC: CHSLAB 13:23
PROVIDERS: PCP Internal Medicine; Visit Provider Internal Medicine Nephrology
DX: I12.9 Hypertensive chronic kidney disease with stage 1 through stage 4 chronic kidney disease, or unspecified chronic kidney disease (principal); N18.32 Chronic kidney disease, stage 3b
CPT/HCPCS: 36415; 80069; 82570; 84156

== ENCOUNTER 2024-03-16 16:55 | Emergency (ER) | payer MEDICARE, SELFPAY ==
--- NOTE | ~2024-03-16 | XR_ITS ---
EXAM: XR hip RT 2V w AP pelvis DATE: 03/16/2024 17:32 HISTORY: accidental fall with posterior right hip pain x1 day . COMPARISON: None available. FINDINGS: Decreased mineralization. No fracture or dislocation. No lytic or blastic lesion. Lumbar d egenerative disc disease. Mild bilateral hip osteoarthritis. No erosion or periosteal change. Soft ti ssues within normal limits. IMPRESSION: No acute osseous finding in the pelvis or right hip. Reviewed, dictated and finalized at location K.
[2024-03-16 16:55] VITALS: BP 112/61; PULSE 89; RESP 18; TEMP 36.3; O2SAT 99
--- NOTE | 2024-03-16 17:09 | ED.LOWEXIN ---
HPI - Extremity Injury (Lower) General Chief Complaint: Extremity Injury, Lower Stated Complaint: fall; right hip pain Time Seen by Provider: 03/16/24 17:09 Source: patient Mode of arrival: ambulatory Limitations: no limitations History of Present Illness HPI Narrative: 78-year-old female with a history of hypertension, CVA, dyslipidemia, hypothyroidism, pulmonary embolism on Eliquis, neurofibromatosis had a fall yesterday. She fell on her left and presents to the ER with -- left hip pain. -- Pain increases on bearing weight. No head injury. No neck or back pain. No abrasions/lacerations. MD complaint: hip injury Onset (ago): day(s) ( One day ago) Injury: Right: hip Type of Injury: blunt Place: home Severity: moderate Relieving factors: immobilization Exacerbating factors: weight bearing Context: fall Other symptoms: none Related Data Home Medications Medication Instructions Recorded Confirmed levothyroxine 50 mcg tablet 50 mcg PO DAILY 05/21/20 12/20/23 olmesartan 20 mg tablet 20 mg PO DAILY 05/21/20 12/20/23 pravastatin 10 mg tablet 10 mg PO DAILY 05/21/20 12/20/23 gabapentin 300 mg capsule 300 mg PO .COMPLEX 12/28/22 12/20/23 apixaban 5 mg tablet (Eliquis) 5 mg PO BID 12/20/23 12/20/23 Allergies Allergy/AdvReac Type Severity Reaction Status Date / Time lisinopril Allergy Cough Verified 03/16/24 17:07 Review of Systems Review of Systems: All systems reviewed & are unremarkable except as noted in HPI and below Constitutional: Constitutional: Reports as per HPI and Reports no additional constitutional complaints Eyes: Eyes: Reports as per HPI and Reports no additional eye complaints ENT: Reports system reviewed and no additional complaints, except as documented and Reports as per HPI Cardiovascular: Cardiovascular: Reports as per HPI and Reports no additional cardiovascular complaints Respiratory: Respiratory: Reports as per HPI and Reports no additional respiratory complaints Gastrointestinal: Gastrointestinal: Reports as per HPI and Reports no additional gastrointestinal complaints Genitourinary: Genitourinary: Reports no additional female genitourinary complaints and Reports as per HPI Musculoskeletal: Musculoskeletal: Reports no additional musculoskeletal complaints and Reports back pain Comments: chronic low back pain Integumentary/Breasts: Skin/Breast: Reports system reviewed and no additional complaints, except as docu Comments: extensive neurofibromatosis. Neurologic: Reports system reviewed and no additional complaints, except as documented and Reports as per HPI Psychiatric: Psychiatric: Reports no additional psychiatric complaints and Reports as per HPI Endocrine: Endocrine: Reports no additional endocrine complaints and Reports as per HPI Hematologic/Lymphatic: Hematologic/Lymphatic: Reports no additional hematologic/lymphatic complaints and Reports as per HPI Allergic/Immunologic: Allergic/Immunologic: Reports no additional allergic/immunologic complaints and Reports as per HPI [facility] Past Medical History Medical History CVA (cerebral vascular accident) HTN (hypertension) Hyperlipidemia Hypothyroidism Lumbago Neurofibromatosis Peripheral neuropathy Social History Social History Smoking status: Former smoker Tobacco type: cigarettes Alcohol intake: current Substance use: never Substance use type: unknown Do You Feel Safe in your Home?: Yes Lack of Transportation: No Lack of Food: Never True Current Housing: I Have Housing Concerned About Future Housing: No Difficulty Paying Gas/Electric Bills: No Difficulty Paying for Meds: No Currently Unemployed: No Education: High School Diploma/GED Difficulty w/ Childcare or Family Care: No Living arrangements: with family Gender identity (if verbalized by the patient): Female
[2024-03-16] MEDS: ONDANSETRON HCL ODT 4 MG TABLET PO (17:55)
[2024-03-16] MEDS: HYDROmorphone HCL INJ (*CRX) 2 MG/ML VIAL 0.5 MG IM (17:55)
[2024-03-16 18:10] VITALS: BP 119/70; PULSE 68; RESP 16; TEMP 36.7; O2SAT 97
== END 2024-03-16 18:10 | disposition home or self-care (01) ==
PROVIDERS: Emergency Provider Internal Medicine Critical Care Medicine; PCP Internal Medicine
DX: M25.551 Pain in right hip (principal); W19.XXXA Unspecified fall, initial encounter; I10 Essential (primary) hypertension; E78.5 Hyperlipidemia, unspecified; E03.9 Hypothyroidism, unspecified; Q85.00 Neurofibromatosis, unspecified; G62.9 Polyneuropathy, unspecified; Z86.73 Personal history of transient ischemic attack (TIA), and cerebral infarction without residual deficits; Z86.711 Personal history of pulmonary embolism; Z79.01 Long term (current) use of anticoagulants; Z87.891 Personal history of nicotine dependence
CPT/HCPCS: 73502; 96372; 99283; A9270; J1170

== ENCOUNTER 2024-04-12 12:42 | Outpatient (CLI) | payer MEDICARE, SELFPAY ==
[2024-04-12 13:29] LABS: Albumin Level 3.1 g/dL (3.4-5.0); Anion Gap 10 mmol/L (4-12); Blood Urea Nitrogen 32 mg/dL (7-18); Calcium 8.9 mg/dL (8.5-10.1); Carbon Dioxide 25 mmol/L (21-32); Chloride 106 mmol/L (98-108); Estimated Glomerular Filt Rate 27; Glucose 97 mg/dL (70-99); Osmolality Calculated 298 mOsm/kg (285-295); Phosphorus 4.2 mg/dL (2.6-4.7); Potassium 4.9 mmol/L (3.5-5.1); Sodium 141 mmol/L (136-145)
[2024-04-13 17:49] LABS: Parathyroid Intact 155 pg/mL (16-77)
[2024-04-14 03:08] LABS: Vitamin D 25 Hydroxy 100 ng/mL (30-100)
== END 2024-04-12 12:43 | disposition home or self-care (01) ==
LOC: CHSLAB 12:43
PROVIDERS: PCP Internal Medicine; Visit Provider Internal Medicine Nephrology
DX: I12.9 Hypertensive chronic kidney disease with stage 1 through stage 4 chronic kidney disease, or unspecified chronic kidney disease (principal); E55.9 Vitamin D deficiency, unspecified; N25.81 Secondary hyperparathyroidism of renal origin; N18.32 Chronic kidney disease, stage 3b
CPT/HCPCS: 36415; 80069; 82306; 83970

== ENCOUNTER 2024-06-07 14:19 | Outpatient (CLI) | payer MEDICARE, SELFPAY ==
[2024-06-07 18:50] LABS: Albumin Level 3.1 g/dL (3.4-5.0); Anion Gap 6 mmol/L (4-12); Blood Urea Nitrogen 22 mg/dL (7-18); Calcium 8.7 mg/dL (8.5-10.1); Carbon Dioxide 27 mmol/L (21-32); Chloride 102 mmol/L (98-108); Estimated Glomerular Filt Rate 39; Glucose 88 mg/dL (70-99); Osmolality Calculated 282 mOsm/kg (285-295); Phosphorus 3.3 mg/dL (2.6-4.7); Potassium 4.6 mmol/L (3.5-5.1); Sodium 135 mmol/L (136-145)
== END 2024-06-07 14:20 | disposition home or self-care (01) ==
LOC: CHSLAB 14:21
PROVIDERS: PCP Internal Medicine; Visit Provider Internal Medicine Nephrology
DX: N18.32 Chronic kidney disease, stage 3b (principal)
CPT/HCPCS: 36415; 80069

== ENCOUNTER 2024-08-15 08:56 | Outpatient (CLI) | payer MEDICARE, SELFPAY ==
[2024-08-15 09:16] LABS: Creatinine Urine 51.49 mg/dL (40-278); Total Protein Urine Random 8.7 mg/dL (0.0-11.9); Ur Ttl Prot Creatinine Ratio 0.17 mg/mg (0-0.20)
[2024-08-15 10:06] LABS: Albumin Level 3.1 g/dL (3.4-5.0); Anion Gap 7 mmol/L (4-12); Blood Urea Nitrogen 21 mg/dL (7-18); Calcium 8.8 mg/dL (8.5-10.1); Carbon Dioxide 28 mmol/L (21-32); Chloride 105 mmol/L (98-108); Estimated Glomerular Filt Rate 36; Glucose 90 mg/dL (70-99); Osmolality Calculated 293 mOsm/kg (285-295); Phosphorus 3.8 mg/dL (2.6-4.7); Potassium 4.6 mmol/L (3.5-5.1); Sodium 140 mmol/L (136-145)
[2024-08-16 16:33] LABS: Parathyroid Intact 126 pg/mL (16-77)
== END 2024-08-15 08:57 | disposition home or self-care (01) ==
LOC: CHSLAB 08:57
PROVIDERS: PCP Internal Medicine; Visit Provider Internal Medicine Nephrology
DX: I12.9 Hypertensive chronic kidney disease with stage 1 through stage 4 chronic kidney disease, or unspecified chronic kidney disease (principal); E55.9 Vitamin D deficiency, unspecified; N25.81 Secondary hyperparathyroidism of renal origin; N18.32 Chronic kidney disease, stage 3b
CPT/HCPCS: 36415; 80069; 82570; 83970; 84156

== ENCOUNTER 2025-02-11 01:51 | Day surgery (SDC) | payer MEDICARE, SELFPAY ==
[2025-02-03 11:33] VITALS: BMI 29.2
--- NOTE | 2025-02-04 10:45 | SUR.PREOP ---
Spoke with patient regarding medication Eliquis. Patient verbalizes understanding that the last dose is to be taken on 02/08/2025 and the Endoscopist will instruct them when to restart after the procedure. This was gone over with her on 02/03/2025 during pre op interview. Reconfirmed clearance with Doctor Chavira.
--- NOTE | 2025-02-10 13:39 | P.PNAN_ITS ---
Anes - Initial Pre Proc Eval Procedure: Operation Date: 02/11/25 09:30 Proposed Procedures p Esophagogastroduodenoscopy & Colonoscopy - Young Simmons DO Date/Time: 02/10/25 13:39 Surgeon: Young Simmons DO Pre Op Diagnosis: positive stool occult Patient Data Age: 79 Gender: F Height: 1.63 m Weight: 77.3 kg Allergies Allergy/AdvReac Type Severity Reaction Status Date / Time lisinopril Allergy Cough Verified 02/11/25 08:14 Home Medications ?Medication ?Instructions ?Recorded ?Confirmed ?Type levothyroxine 50 mcg tablet 50 mcg PO DAILY 05/21/20 02/11/25 History olmesartan 20 mg tablet 20 mg PO DAILY 05/21/20 02/11/25 History pravastatin 10 mg tablet 10 mg PO DAILY 05/21/20 02/11/25 History gabapentin 300 mg capsule 300 mg PO .COMPLEX 12/28/22 02/11/25 History apixaban 5 mg tablet (Eliquis) 5 mg PO BID 12/20/23 02/11/25 History calcitriol 0.25 mcg capsule 0.25 mcg PO 3XW #16 caps 04/17/24 02/11/25 Rx solifenacin 10 mg tablet 10 mg PO DAILY 08/21/24 02/11/25 History cholecalciferol (vitamin D3) 25 25 mcg PO DAILY 02/05/25 02/11/25 History mcg (1,000 unit) capsule magnesium 250 mg tablet 250 mg PO DAILY 02/05/25 02/11/25 History zinc gluconate 50 mg tablet 50 mg PO DAILY 02/05/25 02/11/25 History Patient hx anesthesia problems: none Family hx anesthesia problems: none Results Review: All pre-operative results and documents have been reviewed as part of the pre- operative evaluation. [facility] Past Medical History Medical History (Updated 02/10/25 @ 13:40 by Segundo Marino DO) Breast CA CVA (cerebral vascular accident) Lumbago Hyperlipidemia Hypothyroidism Peripheral neuropathy Neurofibromatosis HTN (hypertension) Social History Social History Smoking status: Never smoker Tobacco type: cigarettes Alcohol intake: current Substance use: never Substance use type: unknown Do You Feel Safe in your Home?: Yes Lack of Transportation: No Lack of Food: Never True Current Housing: I Have Housing Concerned About Future Housing: No Difficulty Paying Gas/Electric Bills: No Difficulty Paying for Meds: No Currently Unemployed: No Education: High School Diploma/GED Difficulty w/ Childcare or Family Care: No Living arrangements: with family Gender identity (if verbalized by the patient): Female Sexual Orientation (if Verbalized by the Patient): Straight or Heterosexual Anes - Eval Final PreProcedure Day of Procedure 02/10/25 13:39 Patient weight: overweight Heart: regular rate and rhythm Lungs: clear to auscultation Airway: Mallampati scale class II Neurological: alert and oriented Last oral intake: >/= 8 hours ASA classification: III Emergent: no Anesthetic plan: proceed Anesthesia type and monitoring: general GIVS and standard monitoring Results Review: All pre-operative results and documents have been reviewed as part of the pre- operative evaluation. Informed Consent: The patient's anesthetic plan and its attendant risks and benefits were disc ussed with the patient/family/POA. Questions were solicited and answers provided to the satisfaction of the patient/family/POA.
--- OUTSIDE RECORDS SUMMARY | 2025-02-11 02:02 | XMS_ITS | Clinical Summary ---
Author Organization [facility] Address [address] [place] [phone] Phone Care Team Providers Care Grouter Helper Name Role Phone Lesa Aguilar MD Primary Care Provider [phone] Allergies Active Allergy Reactions Criticality Noted Date Comments Lisinopril Other (see comments) 11/20/2015 Coughing fits Medications Medication Sig Dispensed Refills Start Date End Date Status cyclobenzaprine (FLEXERIL) 10 MG tablet if needed 11/03/2020 Active gabapentin (NEURONTIN) 300 MG capsule 10/12/2021 Active levothyroxine (SYNTHROID) 50 MCG tablet 10/12/2021 Active olmesartan (BENICAR) 20 MG tablet 10/12/2021 Active pravastatin (PRAVACHOL) 20 MG tablet 10/12/2021 Active solifenacin (VESICARE) 10 MG tablet 10/21/2021 Active Aspirin Buf,GnBzdl-JoCtbr-GqH, 81 MG tablet Take 81 mg by mouth daily Active zinc sulfate (ZINCATE) 220 (50 Zn) MG capsule Take by mouth Active Active Problems Problem Noted Date Diagnosed Date Lumbar radiculopathy 06/09/2022 Overview (08/24/2022): First noticed around 2016 and stable over time with 2 or 3 episodes a month affecting her left lower leg, primarily at night, and with episodes typically lastin Mass of lower limb 12/13/2021 Neurofibromatosis, type 1 (von Recklinghausen's disease) 11/15/2021 Polyneuropathy 11/15/2021 Overview (11/15/2021): due to taxane chemotherapy. Grade 1 History of antineoplastic chemotherapy 7 Overview (11/15/2021): Neoadjuvant chemotherapy, dose dense AC x 4 followed by 3 cycles of Carboplatinum and Paclitaxel completed 02/03/2015. History of radiation therapy 12/20/2016 Overview (11/15/2021): Completed left breast and regional lymphatics radiotherapy 07/16/2015. Hypothyroidism 12/20/2016 Overview (11/15/2021): Diagnosed in 2015. 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 Immunizations Name Administration Dates Next Due GABRIEL SARS-COV-2 VACCINATION 01/15/2021 Family History Medical History Relation Comments Kidney disease Neg Hx Nephrolithiasis Neg Hx Social History Tobacco Use Types Packs/Day Years Used Date Smoking Tobacco: Former Cigarettes Q uit: 1976 Smokeless Tobacco: Never Alcohol Use Standard Drinks/Week Comments Yes 0 (1 standard drink = 0.6 oz pur e alcohol) social use Sex and Gender Information Value Date Recorded Sex Assigned at Not on file Gender Identity Not on file Sexual Orientation Not on file Last Filed Vital Signs Vital Sign Reading Time Taken Comments Blood Pressure 132/74 08/24/2022 9:48 AM CDT Pulse - - Temperature 36.3 C (97.4 F) 08/24/2022 9:48 AM CDT Respiratory Rate 18 08/24/2022 9:48 AM CDT Oxygen Saturation - - Inhaled Oxygen Concentration - - Weight 73.5 kg (162 lb) 08/24/2022 9:48 AM CDT Height 162.6 cm (5' 4 ) 08/24/2022 9:48 AM CDT Body Mass Index 27.81 08/24/2022 9:48 AM CDT Plan of Treatment Health Maintenance Due Date Last Done Comments Pneumococcal PPSV23/PCV13 65 + Years / High and Highest Risk (1 of 4 - PCV) 1951 Pneumococcal PPSV23/PCV13 65 + Years / Low and Medium Risk (1 of 4 - PCV) 2012 Influenza Vaccine (#1) 2024 Care Teams Grouter Helper Relationship Specialty Start Date End Date Lesa Aguilar MD [address] [place] [id number] PCP - General Internal Medicine 08/31/21
--- OUTSIDE RECORDS SUMMARY | 2025-02-11 02:02 | XMS_ITS | Clinical Summary ---
Author Organization [facility] Address [facility] [place] [address] Care Team Providers Care Marketing Operations Associate Name Role Phone Unavailable Primary Care Provider Unavailabl e Source Comments [facility],non-[place] Affiliates and Associated Physician Practices is amultiple site organization consisting of ambulatory clinics and hospital sitesin [place], [place], [place] and [place]. This disclosure is being madepursuant to the Care Everywhere program and may not contain all information available regarding this patient. Last updated 18.[facility] [employer] Social History Tobacco Use Types Packs/Day Years Used Date Smoking Tobacco: Never Assessed Sex and Gender Information Value Date Recorded Sex Assigned at Not on file Gender Identity Not on file Sexual Orientation Not on file Plan of Treatment Health Maintenance Due Date Last Done Comments BONE DENSITY TESTING 1945 MEDICARE AWV 12 MONTHS 1945 HEPATITIS C SCREENING 06/09/1965 DTAP/TDAP/TD VACCINES (1 - Tdap) 1966 PNEUMOCOCCAL VACCINE 50+ (1 of 1 - PCV) 1997 ZOSTER VACCINE (1 of 2) 1997 Respiratory Syncytial Virus (RSV) Vaccine Pt: or over 60 yrs (1 - 1-dose 75+ series) 2022 COVID-19 VACCINE ( - 2023-2 5 season) 2024 INFLUENZA VACCINE (#1) 2024 DEPRESSION SCREENING 11/13/2024 HEPATITIS B VACCINE Aged Out No longe r eligible based on patient's age to complete this topic HIB VACCINE Aged Out No longer eligi ble based on patient's age to complete this topic HPV VACCINE Aged Out No longer eligi ble based on patient's age to complete this topic MENINGOCOCCAL (Group B) VACC INE SHARED DECISION-MAKING Aged Out No longer eligibl e based on patient's age to complete this topic MENINGOCOCCAL GROUPS A/C/Y/W VACCINE Aged Out No longer eligible b ased on patient's age to complete this topic
--- OUTSIDE RECORDS SUMMARY | 2025-02-11 02:02 | XMS_ITS | Clinical Summary ---
Author Organization [facility] Address [address] [place] [address] Phone Care Team Providers Care Foundation Assistant Name Role Phone Nic Chavira MD Unavailable [phone] Shun Pedro MD Unavailable [phone] Lesa Aguilar MD Primary Care Provider [phone] Jayme Spencer MD Unavailable Allergies Active Allergy Reactions Criticality Noted Date Comments Lisinopril Other (see Comments) 11/20/2015 Coughing fits Medications B Complex Vitamins (VITAMIN B COMPLEX PO) Take 1 Dose by mouth daily. Active levothyroxine (SYNTHROID) 50 MCG Tablet Take 50 mcg by mouth daily. Active gabapentin (NEURONTIN) 300 MG CapsuleIndicati ons:Polyneuropa thy Take 5 Caps by mouth daily. 150 Cap 5 8 Active pravastatin (PRAVACHOL) 10 MG Tablet Take 10 mg by mouth daily. Active olmesartan (BENICAR) 20 MG Tablet Take 20 mg by mouth daily. Active solifenacin (VESICARE) 10 MG Tablet Take 10 mg by mouth daily. 1 Active Zinc Sulfate (ZINC-220 PO) Take by mouth. Active Cyanocobalamin (VITAMIN B-12 PO) Take by mouth daily. Active MAGNESIUM PO Take by mouth daily. Active Cholecalciferol (VITAMIN D-3 PO) Take by mouth daily. Active Docusate Sodium (COLACE PO) Take by mouth. Active calcitRIOL (ROCALTROL) 0.25 MCG Capsule Take 0.25 mcg by mouth daily. Taking 3 times a week Active apixaban (Eliquis) 5 MG Tablet TAKE ONE TABLET BY MOUTH TWICE A DAY 180 Tablet 2 5 Active Eliquis 5 MG Tablet TAKE ONE TABLET BY MOUTH TWICE A DAY 180 Tablet 1 4 02/07/20 25 Discontinued Active Problems Problem Noted Date Diagnosed Date Chronic thoracic spine pain 11/05/2024 Abnormal coagulation profile 12/13/2023 Lupus anticoagulant positive 12/13/2023 Obesity 10/25/2023 Neurofibromatosis 10/25/2023 History of breast mammoplasty 10/25/2023 Hemorrhoids 10/25/2023 3 para 3 10/25/2023 Carcinoma 10/25/2023 CVA (cerebral vascular accident) 10/25/2023 HTN (hypertension) 10/25/2023 HLD (hyperlipidemia) 10/25/2023 Neuropathy 10/25/2023 Acute pulmonary embolism without acute cor pulmo nale 10/25/2023 Bilateral leg pain 12/13/2022 Chronic left-sided lumbar radiculopathy 06/09/20 Overview (06/05/2023): First noticed around 2016 and stable over time with 2 or 3 episodes a month affecting her left lower leg, primarily at night, and with episodes typically lasting History of cancer chemotherapy 09/21/2017 Overview (09/21/2017): Neoadjuvant chemotherapy, dose dense AC x 4 followed by 3 cycles of Carboplatinum and Paclitaxel completed 02/03/2015. History of partial mastectomy of left breast 07/2017 Overview (09/21/2017): 04/03/2015 in conjunction with a left axillary sentinel lymph node biopsy and oncoplastic mammoplasty and mastopexy. History of therapeutic radiation 12/20/2016 Overview (09/21/2017): Completed left breast and regional lymphatics radiotherapy 07/16/2015. Hypothyroidism 12/20/2016 Overview (12/20/2016): Diagnosed in 2016. 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 Grade 1 Encounter for screening mamm ogram for malignant neoplasm of breast Resolved Problems Problem Noted Date Diagnosed Date Resolved Date Leg mass, right 12/13/2021 06/09/2022 History of breast mammoplasty 09/21/2017 09/02/2021 Overview (09/21/2017): 04/03/2015 in conjunction with mastopexy and left partial mastectomy and left axillary sentinel lymph node biopsy. Malignant neoplasm of female breast 03/10/2016 Overview (10/14/2015): left breast, poorly differentited invasive ductal carcinoma, triple negative., clinical stage T2N1 (Stage II)-- measuring 2.28 cm prior to neoadjuvant therapy -- S/P 4 cycles of dose dense AC followed by 3 cycles of carboplatin + paclitaxel in the neoadjuvant setting, completed 02/04/15. -- s/p left lumpectomy/SLNE on 04/03/15 with no residual tumor in breast or lymph nodes. -- Completed adjuvant breast RT on 07/17/15 Encounters Date Type Department Care Team Description 02/06/2025 [facility] [address] [place] [address] Nic Chavira MD Medication Refill 12/30/2024 Telephone [facility] [address] [place] [address] Nic Chavira MD 11/26/2024 2:00 PM BOW MAKER Office Visit [facility] - Pulmonology & Sleep Medicine - [place] [address] [place] [address] Jayme Spencer MD Acute septic pulmonary embolism without acute cor pulmonale (HCC) (Primary Dx); Primary hypertension; Neurofibromatosis, type 1 (von Recklinghausen's disease) (HCC); Lupus anticoagulant positive Discharge Disposition: Discharged to home or Selfcare 11/26/2024 Travel from Last 3 Months Immunizations Immunization Administration Dates Next Due Covid-19 Vaccine, Vector-nr, Rs-ad26, Pf, 0.5 Ml ([employer]) 01/15/2021 Family History Medical History Relation Name Comments No Known Problems Brother Congestive Heart Failure Father Neurofibromatosis Father Stroke Father Cancer Mother stomach Cancer Sister non hodgkins ly mphoma Relation Name Status Comments Brother Alive Father Mother Sister Alive Social History Tobacco Use Types Packs/Day Years Used Date Smoking Tobacco: Former Cigarettes 1 10 Smokeless Tobacco: Never Tobacco Cessation:Counseling Given: No Alcohol Use Standard Drinks/Week Comments Yes 0 (1 standard drink = 0.6 oz pur e alcohol) occasionally Comments No Sex and Gender Information Value Date Recorded Sex Assigned at Not on file Legal Sex Female 10:40 PM CDT Gender Identity Not on file Sexual Orientation Not on file Last Filed Vital Signs Vital Sign Reading Time Taken Comments Blood Pressure 118/80 11/26/2024 1:32 PM BOW MAKER Pulse 66 11/26/2024 1:32 PM BOW MAKER Temperature 36.2 C (97.1 F) 11/26/2024 1:32 PM BOW MAKER Respiratory Rate 14 11/26/2024 1:32 PM BOW MAKER Oxygen Saturation 100% 11/26/2024 1:32 PM BOW MAKER Inhaled Oxygen Concentration - - Weight 78.2 kg (172 lb 6.4 oz) 11/26/2024 1:32 P M BOW MAKER Height 162.6 cm (5' 4 ) 11/26/2024 1:32 PM BOW MAKER Body Mass Index 29.59 11/26/2024 1:32 PM BOW MAKER Plan of Treatment Upcoming Encounters Date Type Department Care Team (Late st Contact Info) Description 03/03/2025 2:15 PM CDT Office Visit [facility] - Pulmonology & Sleep Medicine [facility] [address] [place] [address] Jayme Spencer MD [address] [place] [address] 04/11/2025 10:45 AM CDT [facility]ment [facility] [address] [place] [address] Rosamaria Grullon, RN PROGRESSIVE CARE UNIT, NEEDLE CONTROL CHENILLER [address] [place] [address] Discharge Disposition: Discharged to home or Selfcare 11/04/2025 2:15 PM BOW MAKER [facility] [address] [place] [phone] Rosamaria Grullon, RN PROGRESSIVE CARE UNIT, NEEDLE CONTROL CHENILLER [address] [place] [address] Discharge Disposition: Discharged to home or Selfcare Health Maintenance Due Date Last Done Comments DEXA Bone Density 1945 Hepatitis C Virus (HCV) Screening 1945 TdaP Immunization 1945 Discussion re Stopping Mammograms 2022 Respiratory Syncytial Virus (RSV) Immunization (Adult) (1 - 1-dose 75+ series) 2022 SARS-COV-2 Immunization ( season) 2025 09/10/2024, 11/27/2022, 11/22/2021, Additional history exists Mammogram 04/09/2025 04/09/2024, 03/14, 04/02/2022, Additional history exists Colonoscopy High Risk Discontinued 06/28/2016 Colonoscopy Discontinued 06/28/2016 Colorectal Cancer Screening Discontinued Pneumococcal Immunization (50+ years) Completed 10/20/2016, 10/14/2015 Pneumococcal Immunization Combined Discontinued 10/20/2016, 10/14/2015 Zoster Immunization Completed 09/24/2020, 0 Influenza Immunization Completed 4, 09/11/2023, 09/11/2020, Additional history exists Cologuard Discontinued Hepatitis B Immunization Aged Out No longer eligible based on patient's age to complete this topic Immunochemical Fecal Occult Blood Discontinued Meningococcal Immunization (ACWY) Aged Out No longer eligible based on patient's age to complete this topic Rotavirus Immunization Aged Out No lo nger eligible based on patient's age to complete this topic Procedures Procedure Name Priority Date/Time Associated Diagnosis Comments HIEU DIAG BILATERAL DIGITAL W CAD W KATHY Routine 04/09/2024 10:46 AM CDT History of left breast cancer HM COLONOSCOPY Routine 06/28/2016 from Last 3 Months or Most Recently Relevant to Health Maintenance Results * HIEU DIAG BILATERAL DIGITAL W CAD W KATHY (04/09/2024 10:46 AM CDT) Anatomical Region Laterality Modality breast Bilateral Mammography 04/09/2024 9:57 AM CDT Narrative 04/09/2024 2:37 PM CDT - HIEU DIAG BILATERAL DIGITAL W CAD W KATHY BILATERAL DIGITAL DIAGNOSTIC MAMMOGRAM 3D/2D WITH CAD WITH MEDIOLATERAL MEDIOLATERAL OBLIQUE CRANIOCAUDAL MAGNIFICATION: 04/09/2024 The study was acquired using digital technology and interpreted from soft copy. Current study was also evaluated with ICAD version 7.2. 2D digital mammographic views, as well as 3D digital tomosynthesis were performed in the CC and MLO projections. CLINICAL: Patient returns for a 2 year follow-up left breast. Patient has no complaints. Personal history of left breast cancer with lumpectomy. Previous right breast reduction. Paternal aunt had breast cancer. COMPARISONS: Comparison is made to exams dated: 04/06/2023, 12/19/2022, 05/10/2022, 04/02/2022, 03/17/2021, and 03/16/2020 [facility]. BREAST TISSUE:There are scattered fibroglandular densities in both breasts. FINDINGS: Postoperative change is present bilaterally. magnification images of the left breast redemonstrate grouped microcalcifications which appear unchanged in distribution, shape size and number over multiple previous studies. These are considered benign. Skin lesions are again identified and unchanged. No other significant masses, calcifications, or other findings are seen in either breast. IMPRESSION: BI-RAD 2 BENIGN Left breast microcalcifications are stable over 2 years time and are benign. There is no mammographic evidence of malignancy. A 1 year screening mammogram is recommended. The results and recommendations were discussed with the patient. Electronically signed by: Deborah Moreno M.D. ab/:04/09/2024 10:45:05 Varnish Blender(s): RT Reza(R)(M), [facility] letter sent: Normal Exam Reading location: [facility] BI-RADS: 2 Benign Procedure Note Deborah Moreno MD - 04/09/2024 - HIEU DIAG BILATERAL DIGITAL W CAD W KATHY BILATERAL DIGITAL DIAGNOSTIC MAMMOGRAM 3D/2D WITH CAD WITH MEDIOLATERAL MEDIOLATERAL OBLIQUE CRANIOCAUDAL MAGNIFICATION: 04/09/2024 The study was acquired using digital technology and interpreted from soft copy. Current study was also evaluated with ICAD version 7.2. 2D digital mammographic views, as well as 3D digital tomosynthesis were performed in the CC and MLO projections. CLINICAL: Patient returns for a 2 year follow-up left breast. Patient has no complaints. Personal history of left breast cancer with lumpectomy. Previous right breast reduction. Paternal aunt had breast cancer. COMPARISONS: Comparison is made to exams dated: 04/06/2023, 12/19/2022, 05/10/2022, 04/02/2022, 03/17/2021, and 03/16/2020 [facility]. BREAST TISSUE:There are scattered fibroglandular densities in both breasts. FINDINGS: Postoperative change is present bilaterally. magnification images of the left breast redemonstrate grouped microcalcifications which appear unchanged in distribution, shape size and number over multiple previous studies. These are considered benign. Skin lesions are again identified and unchanged. No other significant masses, calcifications, or other findings are seen in either breast. IMPRESSION: BI-RAD 2 BENIGN Left breast microcalcifications are stable over 2 years time and are benign. There is no mammographic evidence of malignancy. A 1 year screening mammogram is recommended. The results and recommendations were discussed with the patient. Electronically signed by: Deborah Moreno M.D. ab/:04/09/2024 10:45:05 Varnish Blender(s): RT Reza(R)(M), [facility] letter sent: Normal Exam Reading location: [facility] BI-RADS: 2 Benign us Nic Chavira MD IMG MAMMO ORDERABLES Fin al Result * HM COLONOSCOPY (06/28/2016) us Lesa Aguilar MD PROCEDURE/MINOR SURGICAL ORDE PURVI Edited Result - Final from Last 3 Months or Most Recently Relevant to Health Maintenance [facility] Advance Directives * Full Code (Latest Code Status on File) Date Activated Date Inactivated Comments 10/25/2023 1:40 AM 10/27/2023 1:38 PM CPR-Full T reatment: FULL ARREST: Attempt Resuscitation/CPR wit intubation and mechanical ventilation. PRE-ARREST: Use entire range of life support measures to stabilize the patient. Care Teams Foundation Assistant Relationship Specialty Start Date End Date Lesa Aguilar MD [address] [place] [address] PCP - General Internal Medicine 10/25/23 Nic Chavira MD [address] [place] [address] Consulting Physician Oncology 03/10/16 Shun Pedro MD [address] [place] [address] Consulting Physician Radiation Oncology 06/09/22 Jayme Spencer MD [address] [place] [address] Consulting Physician Pulmonary Disease 11/16/23
[2025-02-11 08:16] VITALS: BP 126/75; PULSE 71; RESP 18; TEMP 36.1; O2SAT 100; BMI 28.5
[2025-02-11] MEDS: LACTATED RINGERS 1,000 ML 150 ML IV CONT (08:28)
--- NOTE | 2025-02-11 10:27 | PM.IMHP ---
H&P: HPI History of Present Illness Date/Time: 02/11/25 10:27 Chief Complaint: positive occult blood stool Narrative: this is a 79-year-old woman who presents for EGD and colonoscopy. She recently had a stool occult blood test which was positive. She denies any hematochezia melena. She denies GERD symptoms. She had a colonoscopy about 10 years ago which was normal. She denies family history colon cancer. Review of Systems Review of Systems: All systems reviewed & are unremarkable except as noted in HPI and below Constitutional: Constitutional: Denies chills, Denies fever(s), Denies headache(s) and Denies weight loss Eyes: Eyes: Denies change in vision ENT: Denies dizziness, Denies headache(s), Denies neck mass and Denies throat swelling Cardiovascular: Cardiovascular: Denies chest pain, Denies lightheadedness and Denies dyspnea Respiratory: Respiratory: Denies cough, Denies dyspnea and Denies wheezing Gastrointestinal: Gastrointestinal: Denies abdominal pain, Denies change in bowel habits, Denies nausea and Denies vomiting Genitourinary: Genitourinary: Denies hematuria and Denies dysuria Musculoskeletal: Musculoskeletal: Reports as per HPI Integumentary/Breasts: Skin/Breast: Reports as per HPI Neurologic: Denies dizziness and Denies headache(s) Allergic/Immunologic: Allergic/Immunologic: Denies throat swelling and Denies wheezing [facility] Past Medical History Medical History (Updated 02/11/25 @ 10:28 by Young Simmons DO) Breast CA CVA (cerebral vascular accident) Lumbago Hyperlipidemia Hypothyroidism Peripheral neuropathy Neurofibromatosis HTN (hypertension) Social History Social History Smoking status: Never smoker Tobacco type: cigarettes Alcohol intake: current Substance use: never Substance use type: unknown Do You Feel Safe in your Home?: Yes Lack of Transportation: No Lack of Food: Never True Current Housing: I Have Housing Concerned About Future Housing: No Difficulty Paying Gas/Electric Bills: No Difficulty Paying for Meds: No Currently Unemployed: No Education: High School Diploma/GED Difficulty w/ Childcare or Family Care: No Living arrangements: with family Gender identity (if verbalized by the patient): Female Sexual Orientation (if Verbalized by the Patient): Straight or Heterosexual Meds Home Medications and Allergies Home Medications ?Medication ?Instructions ?Recorded ?Confirmed ?Type levothyroxine 50 mcg tablet 50 mcg PO DAILY 05/21/20 02/11/25 History olmesartan 20 mg tablet 20 mg PO DAILY 05/21/20 02/11/25 History pravastatin 10 mg tablet 10 mg PO DAILY 05/21/20 02/11/25 History gabapentin 300 mg capsule 300 mg PO .COMPLEX 12/28/22 02/11/25 History apixaban 5 mg tablet (Eliquis) 5 mg PO BID 12/20/23 02/11/25 History calcitriol 0.25 mcg capsule 0.25 mcg PO 3XW #16 caps 04/17/24 02/11/25 Rx solifenacin 10 mg tablet 10 mg PO DAILY 08/21/24 02/11/25 History cholecalciferol (vitamin D3) 25 25 mcg PO DAILY 02/05/25 02/11/25 History mcg (1,000 unit) capsule magnesium 250 mg tablet 250 mg PO DAILY 02/05/25 02/11/25 History zinc gluconate 50 mg tablet 50 mg PO DAILY 02/05/25 02/11/25 History Allergies Allergy/AdvReac Type Severity Reaction Status Date / Time lisinopril Allergy Cough Verified 02/11/25 08:14 Vital Signs Vital Signs - 24 hr 02/11/25 08:16 Temperature 97.0 F L Pulse Rate 71 Respiratory Rate 18 Blood Pressure 126/75 Pulse Oximetry 100 Oxygen Delivery Room Air Exam Const: General: no acute distress and alert Orientation/consciousness: patient oriented x3 HENMT: Head: normocephalic and atraumatic Ears: hearing grossly normal bilaterally Face/Nose/Sinus: Normal nares present Mouth: Yes Normal oral and palatal mucosa present Eyes: Periorbital: periorbital findings normal Sclera: sclerae normal EOM: EOMs intact bilaterally Neck: Neck: normal visual inspection, no lymphadenopathy and trachea midline Chest: Chest palpation & inspection: normal inspection of the chest Resp: Effort & Inspection: normal respiratory effort Auscultation: clear to auscultation bilaterally Cardio: Jugular venous distension: no JVD Rate: regular rate Rhythm: regular rhythm Heart sounds: S1 normal heart sound present and S2 normal heart sound present Peripheral pulses: Peripheral pulses 2+ throughout GI: Inspection: normal to inspection GI Palp: Yes Soft to palpation, No Tenderness to palpation present (GI), No Guarding due to palpation present (GI) and No Rebound tenderness present Percussion: Yes normal to percussion Auscultation: normal bowel sounds : General: Yes no CVA tenderness Back/Spine/Pelvis: Back: no CVA tenderness Neuro: General: patient oriented x3, no focal motor deficits and CN's II-XI intact bilaterally Cognition (Neuro): normal cognition Speech: normal speech Motor exam (neuro): 5/5 motor strength present throughout Extrem: General: capillary refill normal and no clubbing, cyanosis or edema Assessment and Plan Assessment and plan (1) Positive occult stool blood test: Code(s): R19.5 - Other fecal abnormalities Status: Acute Assessment and Plan: I have recommended EGD and colonoscopy. I have discussed the procedure, risks, benefits, and alternatives. Questions were answered. Patient is agreeable to proceed.
--- NOTE | 2025-02-11 10:50 | SUR.OPER ---
EGD ended at 1044, colon began at 1049.
[2025-02-11 11:20] VITALS: BP 92/54; PULSE 69; RESP 12; O2SAT 100
[2025-02-11 11:30] VITALS: BP 99/58; PULSE 60; RESP 13; O2SAT 100
[2025-02-11 11:40] VITALS: BP 113/71; PULSE 62; RESP 18; O2SAT 100
== END 2025-02-11 12:03 | disposition home or self-care (01) ==
PROVIDERS: PCP Internal Medicine; Visit Provider Surgery
PROC: 0DJ08ZZ Inspection of Upper Intestinal Tract, Via Natural or Artificial Opening Endoscopic (ICD-10-PCS; CPT 45378; principal; 2025-02-11 09:30)
DX: K29.50 Unspecified chronic gastritis without bleeding (principal); B96.81 Helicobacter pylori [H. pylori] as the cause of diseases classified elsewhere; K44.9 Diaphragmatic hernia without obstruction or gangrene; E78.5 Hyperlipidemia, unspecified; E03.9 Hypothyroidism, unspecified; I10 Essential (primary) hypertension; Q85.00 Neurofibromatosis, unspecified; G62.9 Polyneuropathy, unspecified; Z79.01 Long term (current) use of anticoagulants; Z85.3 Personal history of malignant neoplasm of breast; Z86.79 Personal history of other diseases of the circulatory system
CPT/HCPCS: 43239; 45378; 88305; J7120

== ENCOUNTER 2025-04-04 11:30 | Outpatient (CLI) | payer MEDICARE, SELFPAY ==
--- OUTSIDE RECORDS SUMMARY | 2025-04-04 11:33 | XMS_ITS | Clinical Summary ---
Author Organization [facility] Address [address] [place] [address] Care Team Providers Care Barrel Filler Name Role Phone Unavailable Primary Care Provider Unavailabl e Source Comments [facility] Aff[facility]ates and Associated Physician Practices is amultiple site organization consisting of ambulatory clinics and hospital sitesin [place], [place], [place] and [place]. This disclosure is being madepursuant to the Care Everywhere program and may not contain all information available regarding this patient. Last updated 18.[facility] Social History Tobacco Use Types Packs/Day Years Used Date Smoking Tobacco: Never Assessed Comments Unknown Sex and Gender Information Value Date Recorded Sex Assigned at Not on file Legal Sex Female 5:33 AM DIGITAL ARCHIVIST Gender Identity Not on file Sexual Orientation [...] VACCINE ( - 2023-2 5 season) 2024 DEPRESSION SCREENING 11/13/2024 INFLUENZA VACCINE (Season Ended) 2025 HEPATITIS B VACCINE Aged Out No longe [...] on patient's age to complete this topic Insurance MEDICARE [facility] Address: [address] [address] [place] [address] [facility] MANAGED MEDICARE ADV SELF PAY NO INSURANCE Member Subscriber Plan / Payer (Ef fective for All Dates) Name:Alysha Nuñez Member ID:Not on file Relation to Subscriber:Not on file Name:ALYSHA NUÑEZ Subscriber ID:Not on file (Home) Address: [address] [place] [address] Payer ID:Not on file Group ID:Not on file Type:Self Pay Address: [place], [place]
--- OUTSIDE RECORDS SUMMARY | 2025-04-04 11:33 | XMS_ITS | Clinical Summary ---
Author Organization [facility] Address [address] [place] [address] Phone Care Team Providers Care Hull Line Crew Member Name Role Phone Nic Chavira MD Unavailable [phone] Shun Pedro MD Unavailable [phone] Lesa Aguilar MD Primary Care Provider Jayme Spencer MD Unavailable Allergies Active Allergy Reactions Criticality Noted Date Comments Lisinopril Other (see Comments) 11/20/2015 Coughing fits Medications B Complex Vitamins (VITAMIN B COMPLEX PO) Take 1 Dose by mouth daily. Active levothyroxine (SYNTHROID) 50 MCG Tablet Take 50 mcg by mouth daily. Active gabapentin (NEURONTIN) 300 MG CapsuleIndications :Polyneuropathy Take 5 Caps by mouth daily. 150 Cap 5 8 Active pravastatin (PRAVACHOL) 10 MG Tablet Take 10 mg by mouth daily. Active olmesartan (BENICAR) 20 MG Tablet Take 20 mg by mouth daily. Active solifenacin (VESICARE) 10 MG Tablet Take 10 mg by mouth daily. 1 Active Zinc Sulfate (ZINC-220 PO) Take by mouth. A ctive Cyanocobalamin (VITAMIN B-12 PO) Take by mouth daily. Active MAGNESIUM PO Take by mouth daily. Active Cholecalciferol (VITAMIN D-3 PO) Take by mouth daily. Active Docusate Sodium (COLACE PO) Take by mouth. Act jamari calcitRIOL (ROCALTROL) 0.25 MCG Capsule Take 0.25 mcg by mouth daily. Taking 3 times a week Active apixaban (Eliquis) 5 MG TabletIndications: History of Thromboembolic Disease Take 1 Tablet by mouth 2 times daily. Indications: History of Disease involving a Thrombosis or an Embolism 180 Tablet 2 Active Active Problems Problem Noted Date Diagnosed [...] 07/16/2015. Hypothyroidism 12/20/2016 Overview (12/20/2016): Diagnosed in 2015. History of left breast cancer 03/10/2016 Overview [...] Encounters Date Type Department Care Team Description 03/03/2025 2:15 PM CDT [facility] [place] [address] [place] [address] Jayme Spencer MD Acute septic pulmonary embolism without acute cor pulmonale (HCC) (Primary Dx); Primary hypertension; Neurofibromatosis, type 1 (von Recklinghausen's disease) (HCC); Lupus anticoagulant positive Discharge Disposition: Discharged to home or Selfcare 03/03/2025 Travel 02/06/20[facility] [address] [place] [address] Nic Chavira MD Medication Refill from Last 3 Months Immunizations Immunization Administration Dates Next Due Covid-19 Vaccine, Vector-nr, Rs-ad26, Pf, 0.5 Ml (VIPTALON/J&J) 01/15/2021 Family History Medical History Relation Name [...] = 0.6 oz pur e alcohol) occasionally Sexually Active Control Partners Comments Not Currently Comments No Sex and Gender Information Value Date Recorded Sex Assigned at Not on file Legal Sex Female 10:40 PM CDT Gender Identity Not on file Sexual Orientation Not on file Last Filed Vital Signs Vital Sign Reading Time Taken Comments Blood Pressure 118/72 03/03/2025 3:14 PM CDT Pulse 63 03/03/2025 3:14 PM CDT Temperature 36.2 C (97.1 F) 03/03/2025 3:14 PM CDT Respiratory Rate 14 03/03/2025 3:14 PM CDT Oxygen Saturation 98% 03/03/2025 3:14 PM CDT Inhaled Oxygen Concentration - - Weight 77 kg (169 lb 12.8 oz) 03/03/2025 3:14 PM CDT Height 162.6 cm (5' 4 ) 03/03/2025 3:14 PM CDT Body Mass Index 29.15 03/03/2025 3:14 PM CDT Plan of Treatment Upcoming Encounters Date Type Department Care Team (Late st Contact Info) Description 04/11/2025 10:45 AM CDT [facility] [address] [place] [address] Rosamaria Grullon, AUDIT DIRECTOR, DIRECTOR CRAFT CENTER [address] [place] [address] Discharge Disposition: Discharged to home or Selfcare 09/04/2025 2:30 PM CDT [facility] [address] [place] [address] Jayme Spencer MD [address] [place] [address] 11/04/2025 2:15 PM SENIOR TECHNICAL SUPPORT ANALYST Office Visit [facility] [address] [place] [phone] Rosamaria Grullon, AUDIT DIRECTOR, DIRECTOR CRAFT CENTER [address] [place] [address] Discharge Disposition: Discharged to home or Selfcare Health Maintenance Due Date Last Done Comments DEXA Bone Density 1945 Hepatitis C Virus (HCV) Screening 1945 TdaP Immunization 1945 Discussion re Stopping Mammograms 2022 SARS-COV-2 Immunization ( season) 2025 09/10/2024, 11/27/2022, 11/22/2021, Additional history exists Mammogram 04/09/2025 04/09/2024, 03/14, 04/02/2022, Additional history exists Colonoscopy High Risk Discontinued 06/28/2016 Colonoscopy Discontinued 06/28/2016 Colorectal Cancer Screening Discontinued Pneumococcal Immunization (50+ years) Completed 10/20/2016, 10/14/2015 Pneumococcal Immunization Combined Discontinued 10/20/2016, 10/14/2015 Zoster Immunization Completed 09/24/2020, 0 Influenza Immunization Completed , 09/11/2023, 09/11/2020, Additional history exists Respiratory Syncytial Virus (RSV) Immunization (Adult) Completed 01/02/2025 Cologuard Discontinued Hepatitis B Immunization Aged Out No longer eligible based on patient's age to complete this topic Human Papillomavirus (HPV) Immunization Aged Out No longer eligible based [...] 12/19/2022, 05/10/2022, 04/02/2022, 03/17/2021, and 03/16/2020 [facility]. BREAST TISSUE:There are scattered fibroglandular densities in [...] signed by: Deborah Moreno M.D. ab/:04/09/2024 10:45:05 Orchestra Conductor(s): RT Reza(R)(M), [facility] letter sent: Normal Exam Reading location: [facility] BI-RADS: 2 Benign Procedure Note Deborah [...] 04/06/2023, 12/19/2022, 05/10/2022, 04/02/2022, 03/17/2021, and 03/16/2020 [facility]. BREAST TISSUE:There are scattered fibroglandular densities in [...] signed by: Deborah Moreno M.D. ab/:04/09/2024 10:45:05 Orchestra Conductor(s): Delaney Leung, RT(R)(M), [facility] letter sent: Normal Exam Reading location: [facility] BI-RADS: 2 Benign us Nic Chavira MD IMG MAMMO ORDERABLES Fin al Result * HM COLONOSCOPY (06/28/2016) us Lesa Aguilar MD PROCEDURE/MINOR SURGICAL ORDLuca LOJA Edited Result - Final from Last 3 Months or Most Recently Relevant to Health Maintenance Insurance [employer] MEDICARE C [facility] Advance Directives * Full Code (Latest Code Status on File) Date Activated Date Inactivated Comments 10/25/2023 1:40 AM 10/27/2023 1:38 PM CPR-Full T reatment: FULL ARREST: Attempt Resuscitation/CPR wit intubation and mechanical ventilation. PRE-ARREST: Use entire range of life support measures to stabilize the patient. Care Teams Hull Line Crew Member Relationship Specialty Start Date End Date Lesa Aguilar MD [address] [place] [address] PCP - General Internal Medicine 10/25/23 Nic Chavira MD [address] [place] [address] Consulting Physician Oncology 03/10/16 Shun Pedro MD [address] [place] [address] Consulting Physician Radiation Oncology 06/09/22 Jayme Spencer MD [address] [place] [address] Consulting Physician Pulmonary Disease 11/16/23
--- OUTSIDE RECORDS SUMMARY | 2025-04-04 11:33 | XMS_ITS | Clinical Summary ---
Author Organization [facility] Address [address] [place] [address] Phone Care Team Providers Care Farm Management Teacher Name Role Phone Lesa Aguilar MD Primary Care Provider [phone] Allergies Active Allergy Reactions Criticality Noted Date Comments Lisinopril Other (see comments) 11/20/2015 Coughing fits Medications cyclobenzaprine (FLEXERIL) 10 MG tablet if needed 11/03/2020 Active gabapentin (NEURONTIN) 300 MG capsule 10/12/2021 Active levothyroxine (SYNTHROID) 50 MCG tablet 10/12/2021 Active olmesartan (BENICAR) 20 MG tablet 10/12/2021 Active pravastatin (PRAVACHOL) 20 MG tablet 10/12/2021 Active solifenacin (VESICARE) 10 MG tablet 10/21/2021 Active Aspirin Buf,CaCarb-MgCar b-MgO, 81 MG tablet Take 81 mg by [...] left breast and regional lymphatics 07/16/2015. Immunizations Immunization Administration Dates Next Due [employer] SARS-COV-2 VACCINATION 01/15/2021 Family History Medical History Relation Comments Kidney disease Neg Hx Nephrolithiasis Neg Hx Social History Tobacco Use Types Packs/Day Years Used Date Smoking Tobacco: Former Cigarettes Q uit: 1976 Smokeless Tobacco: Never Alcohol Use Standard Drinks/Week Comments Yes 0 (1 standard drink = 0.6 oz pur e alcohol) social use Comments Unknown Sex and Gender Information Value Date Recorded Sex Assigned at Not on file Legal Sex Female 1:48 PM MDT Gender Identity Not on file Sexual Orientation [...] Comments Pneumococcal PPSV23/PCV13 65 + Years / Low and Medium Risk (1 of 4 - PCV) 1997 Influenza Vaccine (Season Ended) 2025 Insurance [employer] MEDICARE Member Subscriber Plan / Payer (Ef fective 2021-Present) Name:Kylee Sheth Member ID:[id number] PPO Relation to Subscriber:Self Name:Kylee Sheth Subscriber ID:[id number] PPO Payer ID:[id number] Type:Not on file Address: [address] [address] [place] [address] Care Teams Farm Management Teacher Relationship Specialty Start Date End Date Lesa Aguilar MD [address] [place] [address] PCP - General Internal Medicine 08/31/21
[2025-04-04 12:14] LABS: Creatinine Urine 92.4 mg/dL
[2025-04-04 12:17] LABS: Total Protein Urine Random < 5 mg/dL; Ur Ttl Prot Creatinine Ratio 0.05 mg/mg (0-0.20)
[2025-04-04 12:39] LABS: Albumin Level 3.4 g/dL (3.5-5.1); Anion Gap 1 mmol/L (4-12); Blood Urea Nitrogen 22 mg/dL (7-17); Calcium 8.9 mg/dL (8.4-10.2); Carbon Dioxide 25 mmol/L (22-30); Chloride 113 mmol/L (98-107); Estimated Glomerular Filt Rate 38; Glucose 97 mg/dL (65-110); Osmolality Calculated 291 mOsm/kg (285-295); Phosphorus 3.6 mg/dL (2.5-4.5); Potassium 4.7 mmol/L (3.4-5.0); Sodium 139 mmol/L (137-145)
== END 2025-04-04 11:31 | disposition home or self-care (01) ==
LOC: CHSLAB 11:31
PROVIDERS: PCP Internal Medicine; Visit Provider Internal Medicine Nephrology
DX: I12.9 Hypertensive chronic kidney disease with stage 1 through stage 4 chronic kidney disease, or unspecified chronic kidney disease (principal); N18.32 Chronic kidney disease, stage 3b
CPT/HCPCS: 36415; 80069; 82570; 84156

== ENCOUNTER 2025-08-06 12:33 | Outpatient (CLI) | payer MEDICARE, SELFPAY ==
--- OUTSIDE RECORDS SUMMARY | 2025-08-06 12:41 | XMS_ITS | Clinical Summary ---
Author Organization [facility] Address [address] [place] [address] Phone Care Team Providers Care Stacker Attendant Name Role Phone Nic Chavira MD Unavailable [phone] Shun Pedro MD Unavailable [phone] Lesa Aguilar MD Primary Care Provider [phone] Jayme Spencer MD Unavailable Allergies Active Allergy [...] -- Completed adjuvant breast RT on 07/17/15 Immunizations Immunization Administration Dates Next Due Covid-19 Vaccine, Vector-nr, Rs-ad26, Pf, 0.5 Ml ([employer]) 01/15/2021 Family History Medical History Relation Name [...] 3:14 PM CDT Height 162.6 cm (5' 4) 03/03/2025 3:14 PM CDT Body Mass Index 29.15 03/03/2025 3:14 PM CDT Plan of Treatment Upcoming Encounters Date Type Department Care Team (Late st Contact Info) Description 09/04/2025 2:30 PM CDT [facility] Visit [facility] [address] [place] [address] Jayme Spencer MD [address] [place] [address] 11/04/2025 2:15 PM TAX EXAMINER [facility] [address] [place] [address] Rosamaria Grullon, TRAINING REPRESENTATIVE, MACHINE PLATE STACKER [address] [place] [address] Discharge Disposition: Discharged to home or Selfcare Health Maintenance Due Date Last Done Comments DEXA Bone Density 1945 Hepatitis C Virus (HCV) Screening 1945 TdaP Immunization 1945 Discussion re Stopping Mammograms 2022 Influenza Immunization (#1) 07/14/202508/14, 09/11/2023, 09/11/2020, Additional history exists SARS-COV-2 Immunization ( season) 2025 09/10/2024, 11/27/2022, 11/22/2021, Additional history exists Mammogram 04/11/2026 04/11/2025, 03/14, 04/06/2023, Additional history exists Colonoscopy Discontinued 06/28/2016 Colorectal Cancer Screening Discontinued Pneumococcal Immunization (50+ years) Completed 10/20/2016, 10/14/2015 Pneumococcal Immunization Combined Discontinued 10/20/2016, 10/14/2015 Zoster Immunization Completed 09/24/2020, 0 Respiratory Syncytial Virus (RSV) Immunization (Adult) Completed [...] Name Priority Date/Time Associated Diagnosis Comments HIEU SCREENING BILATERAL DIGITAL W CAD W KATHY Routine 04/11/2025 10:45 AM CDT History of left breast cancer Encounter for screening mammogram for malignant neoplasm of breast HM COLONOSCOPY Routine 06/28/2016 from Last 3 Months or Most Recently Relevant to Health Maintenance Results * HIEU SCREENING BILATERAL DIGITAL W CAD W KATHY (04/11/2025 10:45 AM CDT) Anatomical Region Laterality Modality breast Bilateral Mammography 04/11/2025 10:1 9 AM CDT Narrative 04/11/2025 1:38 PM CDT - HIEU SCREENING BILATERAL DIGITAL W CAD W KATHY BILATERAL DIGITAL SCREENING MAMMOGRAM 3D/2D WITH CAD WITH MEDIOLATERAL OBLIQUE CRANIOCAUDAL: 04/11/2025 The study was acquired using digital technology and interpreted from soft copy. Current study was also evaluated with ICAD version 7.2. 2D digital mammographic views, as well as 3D digital tomosynthesis were performed in the CC and MLO projections. CLINICAL: Routine screening. Patient has no complaints. Personal history of left breast cancer with lumpectomy. Right breast reduction. Paternal aunt had breast cancer. COMPARISONS: Comparison is made to exams dated: 12/19/2022, 04/06/2023, 04/02/2022, and 03/17/2021 [facility]. BREAST TISSUE:There are scattered areas of fibroglandular density. FINDINGS: There are benign calcifications in the left breast. There also are benign post operative findings in the left breast. No significant masses, calcifications, or other findings are seen in either breast. There has been no significant interval change. IMPRESSION: BENIGN There is no mammographic evidence of malignancy. A 1 year screening mammogram is recommended. A letter will be sent to the patient with these results. The patient will be entered into a reminder system with a target due date of 1 year for her next screening exam. Electronically signed by: Deborah gaytan/wallace:04/11/2025 13:01:55 Transmission Worker(s): RT Mary(Concepción)(M), [facility] letter sent: Normal Exam Reading location: [facility] Mammogram BI-RADS: Category 2: Benign Procedure Note Deborah Moreno MD - 04/11/2025 - HIEU SCREENING BILATERAL DIGITAL W CAD W KATHY BILATERAL DIGITAL SCREENING MAMMOGRAM 3D/2D WITH CAD WITH MEDIOLATERAL OBLIQUE CRANIOCAUDAL: 04/11/2025 The study was acquired using digital technology and interpreted from soft copy. Current study was also evaluated with ICAD version 7.2. 2D digital mammographic views, as well as 3D digital tomosynthesis were performed in the CC and MLO projections. CLINICAL: Routine screening. Patient has no complaints. Personal history of left breast cancer with lumpectomy. Right breast reduction. Paternal aunt had breast cancer. COMPARISONS: Comparison is made to exams dated: 12/19/2022, 04/06/2023, 04/02/2022, and 03/17/2021 [facility]. BREAST TISSUE:There are scattered areas of fibroglandular density. FINDINGS: There are benign calcifications in the left breast. There also are benign post operative findings in the left breast. No significant masses, calcifications, or other findings are seen in either breast. There has been no significant interval change. IMPRESSION: BENIGN There is no mammographic evidence of malignancy. A 1 year screening mammogram is recommended. A letter will be sent to the patient with these results. The patient will be entered into a reminder system with a target due date of 1 year for her next screening exam. Electronically signed by: Deborah Moreno M.D. ab/aisharad:04/11/2025 13:01:55 Transmission Worker(s): RT Mary(R)(M), [facility] letter sent: Normal Exam Reading location: [facility] Mammogram BI-RADS: Category 2: Benign us Rosamaria Grullon APRN, MACHINE PLATE STACKER IMG MAMMO ORDERABLES F inal Result * HM COLONOSCOPY (06/28/2016) us Lesa Aguilar MD PROCEDURE/MINOR SURGICAL NELL LOJA Edited Result - Final from Last 3 Months or Most Recently Relevant to Health Maintenance Insurance [facility]IC[facility] Advance Directives * Full Code (Latest Code Status on File) Date Activated Date Inactivated Comments 10/25/2023 1:40 AM 10/27/2023 1:38 PM CPR-Full T reatment: FULL ARREST: Attempt Resuscitation/CPR wit intubation and mechanical ventilation. PRE-ARREST: Use entire range of life support measures to stabilize the patient. Care Teams Stacker Attendant Relationship Specialty Start Date End Date Lesa Aguilar MD [address] [place] [address] PCP - General Internal Medicine 10/25/23 Nic Chavira MD [address] [place] [address] Consulting Physician Oncology 03/10/16 Shun Pedro MD [address] [place] [address] Consulting Physician Radiation Oncology 06/09/22 Jayme Spencer MD [address] [place] [address] Consulting Physician Pulmonary Disease 11/16/23
--- OUTSIDE RECORDS SUMMARY | 2025-08-06 12:41 | XMS_ITS | Clinical Summary ---
Author Organization [facility] Address [address] [place] [address] Phone Care Team Providers Care Dip Stand Loader Name Role Phone Lesa Aguilar MD Primary Care Provider [phone] Allergies Active Allergy Reactions Criticality Noted Date [...] 07/16/2015. Immunizations Immunization Administration Dates Next Due [employer] SARS-COV-2 VACCINATION 01/15/2021 Family History Medical History [...] 9:48 AM CDT Height 162.6 cm (5' 4) 08/24/2022 9:48 AM CDT Body Mass Index 27.81 08/24/2022 9:48 AM CDT Plan of Treatment Health Maintenance Due Date Last Done Comments Pneumococcal PPSV23/PCV13 65 + Years / Low and Medium Risk (1 of 2 - PCV) 1997 Influenza Vaccine (#1) 2025 Insurance [employer] MEDICARE Member Subscriber Plan / Payer (Ef fective 2021-Present) Name:Kylee Sheth Member ID:[id number] PPO Relation to Subscriber:Self Name:Kylee Sheth Subscriber ID:[id number] PPO Payer ID:[id number] (NAIC) Type:Not on file Address: [address] [address] [place] [address] Care Teams Dip Stand Loader Relationship Specialty Start Date End Date Lesa Aguilar MD [address] [place] [id number] PCP - General Internal Medicine 08/31/21
--- OUTSIDE RECORDS SUMMARY | 2025-08-06 12:41 | XMS_ITS | Clinical Summary ---
Author Organization [facility] Address [address] [place] [address] Care Team Providers Care Citrix Engineer Name Role Phone Unavailable Primary Care Provider Unavailabl e Source Comments [facility] Affiliates and Associated Physician Practices is amultiple site organization consisting of ambulatory clinics and hospital sitesin [place], [place] and [place]. This disclosure is being madepursuant to the Care Everywhere program and may not contain all information available regarding this patient. Last updated 18.[facility] Social History Tobacco Use Types Packs/Day Years Used Date Smoking Tobacco: Never Assessed Comments Unknown Sex and Gender Information Value Date Recorded Sex Assigned at Not on file Legal Sex Female 5:33 AM INTENSIVE CARE ANAESTHETIST Gender Identity Not on file Sexual Orientation [...] yrs (1 - 1-dose 75+ series) 2022 DEPRESSION SCREENING 11/13/2024 COVID-19 VACCINE (1 - 2023-2 5 season) 2025 INFLUENZA VACCINE (#1) 2025 HEPATITIS B VACCINE Aged Out No [...] age to complete this topic Insurance MEDICARE [facility] MANAGED MEDICARE ADV SELF PAY NO INSURANCE Member Subscriber Plan / Payer (Ef fective for All Dates) Name:Alysha Nuñez Member ID:Not on file Relation to Subscriber:Not on file Name:ALYSHA NUÑEZ Subscriber ID:Not on file (Home) Address: [address] [place] [address] Payer ID:Not on file Group ID:Not on file Type:Self Pay Address: [place], [place]
[2025-08-06 13:14] LABS: Total Protein Urine Random 9 mg/dL; Ur Ttl Prot Creatinine Ratio 0.08 mg/mg (0-0.20)
[2025-08-06 13:28] LABS: Albumin Level 3.7 g/dL (3.5-5.1); Anion Gap 6 mmol/L (4-12); Blood Urea Nitrogen 20 mg/dL (7-17); Calcium 9.7 mg/dL (8.4-10.2); Carbon Dioxide 26 mmol/L (22-30); Chloride 110 mmol/L (98-107); Estimated Glomerular Filt Rate 41; Glucose 98 mg/dL (65-110); Osmolality Calculated 296 mOsm/kg (285-295); Potassium 4.6 mmol/L (3.4-5.0); Sodium 142 mmol/L (137-145)
[2025-08-07 09:00] LABS: Parathyroid Intact 87.1
== END 2025-08-06 12:34 | disposition home or self-care (01) ==
LOC: CHSLAB 12:35
PROVIDERS: PCP Internal Medicine; Visit Provider Internal Medicine Nephrology
DX: I12.9 Hypertensive chronic kidney disease with stage 1 through stage 4 chronic kidney disease, or unspecified chronic kidney disease (principal); N18.32 Chronic kidney disease, stage 3b; N25.81 Secondary hyperparathyroidism of renal origin; E55.9 Vitamin D deficiency, unspecified
CPT/HCPCS: 36415; 80069; 82306; 82570; 83970; 84156